=== PATIENT | female | born 1950 | race Caucasian/White ===

== ENCOUNTER → 2017-05-04 | Outpatient (CLI) | payer MEDICARE, BC ==
[2017-05-04 08:19] LABS: Basophils # (A) 0.1 k/uL (0-0.2); Basophils % (A) 1 %; CH 30.2; CHCM 34.8; Eosinophils # (A) 0.2 k/uL (0-0.7); Eosinophils % (A) 3 %; HCT 36.3 % (34.0-46.0); HGB 12.5 gm/dL (11.4-16.0); Luc # (Auto) 0.16; Luc % (Auto) 3; Lymphocytes % (A) 32 %; MCH 30.1 pg (25.0-35.0); MCHC 34.5 g/dL (31.0-37.0); MCV 87.2 fL (80.0-100.0); Mean Platelet Volume 8.2; Monocytes # (A) 0.4 k/uL (0-1.0); Monocytes % (A) 6 %; Neutrophils # (A) 3.6 k/uL (1.3-7.7); Neutrophils % (A) 56 %; RBC 4.16 m/uL (3.80-5.40); RDW 13.2 % (11.5-15.5); WBC 6.4 k/uL (3.8-10.6); WBC (Perox) 6.26
[2017-05-04 08:54] LABS: Hemoglobin A1C 7.1 % (4.2-6.1)
[2017-05-04 12:25] LABS: Calcium 9.9 mg/dL (8.4-10.2); Potassium 4.5 mmol/L (3.5-5.1); Total Bilirubin 0.3 mg/dL (0.2-1.3); Total Protein 7.3 g/dL (6.3-8.2)
== END | disposition home or self-care (01) ==
LOC: LABWHC1 07:22
PROVIDERS: ATTEND Internal Medicine Geriatric Medicine
DX: E78.00 Pure hypercholesterolemia, unspecified (principal); K21.9 Gastro-esophageal reflux disease without esophagitis; I10 Essential (primary) hypertension; E11.65 Type 2 diabetes mellitus with hyperglycemia; R74.8 Abnormal levels of other serum enzymes
CPT/HCPCS: 36415; 80053; 80061; 83036; 84439; 84443; 85025

== ENCOUNTER → 2017-08-24 | Outpatient (CLI) | payer MEDICARE, BC ==
[2017-08-24 07:59] LABS: Basophils # (A) 0.1 k/uL (0-0.2); Basophils % (A) 1 %; CH 30.3; CHCM 33.8; Eosinophils # (A) 0.3 k/uL (0-0.7); Eosinophils % (A) 4 %; HCT 34.5 % (34.0-46.0); HDW 2.64; HGB 11.5 gm/dL (11.4-16.0); Luc # (Auto) 0.07; Luc % (Auto) 1; Lymphocytes # (A) 2.2 k/uL (1.0-4.8); Lymphocytes % (A) 33 %; MCH 30.1 pg (25.0-35.0); MCHC 33.4 g/dL (31.0-37.0); MCV 90.1 fL (80.0-100.0); Mean Platelet Volume 8.8; Monocytes # (A) 0.4 k/uL (0-1.0); Monocytes % (A) 6 %; Neutrophils # (A) 3.7 k/uL (1.3-7.7); Neutrophils % (A) 55 %; RBC 3.83 m/uL (3.80-5.40); RDW 13.8 % (11.5-15.5); WBC 6.7 k/uL (3.8-10.6); WBC (Perox) 6.89
[2017-08-24 08:09] LABS: ALT 27 U/L (9-52); AST 16 U/L (14-36); Alkaline Phosphatase 73 U/L (38-126); Anion Gap 9 mmol/L; Blood Urea Nitrogen 21 mg/dL (7-17); Carbon Dioxide 28 mmol/L (22-30); Chloride 100 mmol/L (98-107); Cholesterol 225 mg/dL (<200); Glucose 147 mg/dL (74-99); HDL Cholesterol 46 mg/dL (40-60); Non-African American GFR(MDRD) 50 (>60 ml/min/1.73 sqM); Potassium 4.3 mmol/L (3.5-5.1); Sodium 137 mmol/L (137-145); Total Bilirubin 0.3 mg/dL (0.2-1.3); Total Protein 7.4 g/dL (6.3-8.2)
== END | disposition home or self-care (01) ==
LOC: LABWHC1 07:35
PROVIDERS: ATTEND Internal Medicine Geriatric Medicine
DX: K21.9 Gastro-esophageal reflux disease without esophagitis (principal); E11.65 Type 2 diabetes mellitus with hyperglycemia
CPT/HCPCS: 36415; 80053; 80061; 83036; 85025

== ENCOUNTER → 2017-10-02 | Outpatient (CLI) | payer MEDICARE, BC ==
--- NOTE | 2017-10-03 09:32 | MM ---
Reason for exam: screening (asymptomatic). Last mammogram was performed 1 year ago. History: Patient is postmenopausal. Family history of breast cancer in maternal cousin at age 60 and breast cancer in maternal aunt at age 60. Benign stereotactic core biopsy of the right breast, April 11, 2001. Took hormonal contraceptives for 4 years. Took estrogen for 4 months. Physical Findings: A clinical breast exam by your physician is recommended on an annual basis and results should be correlated with mammographic findings. MG 3D Screening Mammo W/Cad Bilateral CC and MLO view(s) were taken. Prior study comparison: September 27, 2016, bilateral MG 3d screening mammo w/cad. September 26, 2015, bilateral MG 3d screening mammo w/cad. The breast tissue is heterogeneously dense. This may lower the sensitivity of mammography. Right biopsy marker noted. No significant changes when compared with prior studies. ASSESSMENT: Negative, BI-RAD 1 RECOMMENDATION: Routine screening mammogram of both breasts in 1 year.
== END | disposition home or self-care (01) ==
LOC: RADMAMWWP 12:28
PROVIDERS: ATTEND Internal Medicine Geriatric Medicine
DX: Z12.31 Encounter for screening mammogram for malignant neoplasm of breast (principal)
CPT/HCPCS: 77063; 77067

== ENCOUNTER → 2018-04-01 | Outpatient (CLI) | payer MEDICARE, BC ==
[2018-04-01 08:46] LABS: Basophils # (A) 0.1 k/uL (0-0.2); Basophils % (A) 1 %; Eosinophils # (A) 0.1 k/uL (0-0.7); Eosinophils % (A) 2 %; HCT 34.5 % (34.0-46.0); Lymphocytes # (A) 1.4 k/uL (1.0-4.8); Lymphocytes % (A) 19 %; MCH 29.6 pg (25.0-35.0); MCHC 34.7 g/dL (31.0-37.0); MCV 85.4 fL (80.0-100.0); Mean Platelet Volume 7.1; Monocytes # (A) 0.4 k/uL (0-1.0); Monocytes % (A) 5 %; Neutrophils # (A) 5.3 k/uL (1.3-7.7); Neutrophils % (A) 73 %; Platelet Count 310 k/uL (150-450); RBC 4.04 m/uL (3.80-5.40); RDW 13.9 % (11.5-15.5); WBC 7.2 k/uL (3.8-10.6)
[2018-04-01 09:05] LABS: T4, Free (Free Thyroxine) 1.27 ng/dL (0.78-2.19)
[2018-04-01 09:19] LABS: Potassium 4.5 mmol/L (3.5-5.1)
[2018-04-01 09:20] LABS: Albumin 4.1 g/dL (3.5-5.0); Calcium 9.9 mg/dL (8.4-10.2); Total Bilirubin 0.3 mg/dL (0.2-1.3); Total Protein 6.6 g/dL (6.3-8.2)
[2018-04-01 18:29] LABS: Hemoglobin A1C 6.9 % (4.0-6.0)
== END | disposition home or self-care (01) ==
LOC: LABWHC1 07:07
PROVIDERS: ATTEND Internal Medicine Geriatric Medicine
DX: E78.00 Pure hypercholesterolemia, unspecified (principal); E11.65 Type 2 diabetes mellitus with hyperglycemia; K21.9 Gastro-esophageal reflux disease without esophagitis; I10 Essential (primary) hypertension; R74.8 Abnormal levels of other serum enzymes
CPT/HCPCS: 36415; 80053; 80061; 83036; 84439; 84443; 85025

== ENCOUNTER → 2018-07-10 | Outpatient (CLI) | payer MEDICARE, BC ==
[2018-07-10 08:39] LABS: Basophils % (A) 1 %; Eosinophils # (A) 0.1 k/uL (0-0.7); Eosinophils % (A) 2 %; HCT 33.5 % (34.0-46.0); HGB 11.5 gm/dL (11.4-16.0); Lymphocytes # (A) 1.4 k/uL (1.0-4.8); Lymphocytes % (A) 26 %; MCH 29.1 pg (25.0-35.0); MCHC 34.2 g/dL (31.0-37.0); MCV 85.2 fL (80.0-100.0); Mean Platelet Volume 8.4; Monocytes # (A) 0.3 k/uL (0-1.0); Monocytes % (A) 6 %; Neutrophils # (A) 3.4 k/uL (1.3-7.7); Neutrophils % (A) 65 %; Platelet Count 242 k/uL (150-450); RBC 3.94 m/uL (3.80-5.40); RDW 12.9 % (11.5-15.5); WBC 5.2 k/uL (3.8-10.6)
[2018-07-10 08:50] LABS: Albumin 4.1 g/dL (3.5-5.0); Calcium 9.8 mg/dL (8.4-10.2); Magnesium 1.7 mg/dL (1.6-2.3); Potassium 4.4 mmol/L (3.5-5.1); Total Bilirubin 0.3 mg/dL (0.2-1.3); Total Protein 6.8 g/dL (6.3-8.2)
[2018-07-10 09:07] LABS: T4, Free (Free Thyroxine) 1.2 ng/dL (0.78-2.19)
[2018-07-10 16:18] LABS: Vitamin D 25 Hydroxy 22.8 ng/mL (30.0-100.0)
[2018-07-10 19:06] LABS: Hemoglobin A1C 6.3 % (4.0-6.0)
== END | disposition home or self-care (01) ==
LOC: LABWHC1 07:49
PROVIDERS: ATTEND Internal Medicine Geriatric Medicine
DX: E11.65 Type 2 diabetes mellitus with hyperglycemia (principal); G58.9 Mononeuropathy, unspecified; E78.00 Pure hypercholesterolemia, unspecified; E55.9 Vitamin D deficiency, unspecified; G25.81 Restless legs syndrome
CPT/HCPCS: 36415; 80053; 80061; 82306; 82728; 83036; 83735; 84439; 84443; 85025

== ENCOUNTER → 2018-10-07 | Outpatient (CLI) | payer MEDICARE, BC ==
[2018-10-07 13:14] VITALS: BP 175/72; PULSE 76; RESP 18; TEMP 96.9; BMI 25.6
--- NOTE | 2018-10-07 13:46 | P.HPOB ---
History of Present Illness H&P Date: 10/07/18 Chief Complaint: The patient is here for her routine gynecologic exam and mammogram. This is a 68-year-old G to P2 with an LMP of 1975. She is status post TIAN and later BSO for benign reasons. She is here to establish with this office. She states it has been about 3 or 4 years since her last pelvic exam. She had a slightly abnormal Pap smear 3 or 4 years ago and had a colposcopy which was okay per the patient. She is sexually active and has had some vaginal dryness which is improved with an [id number] lubricant. Review of Systems Weight has been stable. She denies respiratory, cardiac and G.I. problems. She can get heartburn if she does not take her Prilosec. She denies maltreatment or problems with falling. : she denies any significant problems with urinary leakage. Past Medical History Past Medical History: Diabetes Mellitus (Type II diabetes), Hyperlipidemia, Hypertension Additional Past Medical History / Comment(s): Hiatal hernia. 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 She did have endometriosis. She says post TIAN and later BSO. History of Any Multi-Drug Resistant Organisms: None Reported Past Surgical History: Back Surgery, Cholecystectomy, Ear Surgery (Tubes and ear ), Hysterectomy (TIAN in 1975 and BSO in 1989.), Orthopedic Surgery (Shoulder and back surgeries.), Tonsillectomy Additional Past Surgical History / Comment(s): BSO. Colonoscopy 2017 and this was her 4th. Past Anesthesia/Blood Transfusion Reactions: No Reported Reaction Past Psychological History: No Psychological Hx Reported Smoking Status: Never smoker Past Alcohol Use History: None Reported Past Drug Use History: None Reported Additional History: She has been since 1969 and is retired. - Past Family History Father Family Medical History: Myocardial Infarction ([place]) Mother Family Medical History: Coronary Artery Disease (CAD), Hypertension Additional Family Medical History / Comment(s): Maternal aunt had breast cancer. Medications and Allergies Home Medications Medication Instructions Recorded Confirmed Type Aspirin [Adult Low Dose Aspirin EC] 81 mg PO DAILY 10/07/18 10/07/18 History Biotin 5,000 mcg PO DAILY 10/07/18 10/07/18 History Diltiazem Cd [Cardizem Cd] 240 mg PO DAILY 10/07/18 10/07/18 History Hydrochlorothiazide [Hydrodiuril] 25 mg PO DAILY 10/07/18 10/07/18 History Olmesartan [Benicar] 20 mg PO DAILY 10/07/18 10/07/18 History Omeprazole [PriLOSEC] 20 mg PO AC-BRKFST 10/07/18 10/07/18 History Allergies Allergy/AdvReac Type Severity Reaction Status Date / Time nystatin [From Bio-Statin] Allergy Unknown Verified 10/07/18 13:22 Sulfa (Sulfonamide Allergy Rash/Hives Verified 10/07/18 13:22 Antibiotics) Exam Vital Signs Temp Pulse Resp BP Pulse Ox 10/07/18 13:06 96.9 F L 76 18 175/72 98 Intake and Output 10/06/18 10/07/18 10/07/18 22:59 06:59 14:59 Other: Weight 63.503 kg Height 5'2", weight 140 pounds, BMI 25.6. This is a well-developed well-nourished white female who is alert and oriented times 3 in no acute distress. HEENT: Within normal limits. NECK: Supple without mass or thyromegaly. CHEST AND LUNGS: Clear to auscultation. HEART: Regular rate and rhythm. BREASTS: Are without mass or discharge. The left nipple is fairly flat to the surface compared to the right breast. The patient states it is been this way for many years. AXILLARY EXAM: Negative for adenopathy. BACK: Negative for CVA tenderness. ABDOMEN: Soft, nontender, without palpable masses. PELVIC EXAM: External genitalia appears normal with moderate atrophy. Vagina appears normal mild to moderate atrophy. There is no evidence of prolapse. Bimanual examination is negative for mass or tenderness. RECTAL EXAM: Rectovaginal exam is negative for mass or tenderness and is negative for occult blood. EXTREMITIES: Nontender. IMPRESSION: 1. 68-year-old menopausal female status post TIAN and later BSO for benign reasons with normal gynecologic exam. 2. Vaginal dryness with intercourse improved with [id number] lubricant. The patient is declining any vaginal estrogen. 3. History of osteopenia. The patient states she is declining any further testing since she would not take any medications regardless of what it shows. PLAN: 1. Pap smears have been discontinued. 2. Self breast awareness was discussed with the patient. 3. Screening mammogram will be done today. 4. Osteoporosis prevention was discussed. I have stressed the importance of adequate calcium, vitamin D and regular exercise. Recommended amounts of calcium and vitamin D were also discussed. She will let me know if she changes her mind about bone density testing which she is declining at this time. 5. She did receive a flu shot this past fall. 6. We have discussed her blood pressure elevation today. She will continue to take blood pressures at home and follow up with Dr. Thompson for blood pressure elevations. 7. She will return in one year.
--- NOTE | 2018-10-11 07:57 | MM ---
Reason for exam: screening (asymptomatic). Last mammogram was performed 1 year ago. History: Patient is postmenopausal. Family history of breast cancer in maternal cousin at age 60 and breast cancer in maternal aunt at age 60. Benign stereotactic core biopsy of the right breast, April 11, 2001. Took hormonal contraceptives for 4 years. Took estrogen for 4 months. MG 3D Screening Mammo W/Cad Bilateral CC and MLO view(s) were taken. Prior study comparison: October 02, 2017, bilateral MG 3d screening mammo w/cad. September 27, 2016, bilateral MG 3d screening mammo w/cad. The breast tissue is heterogeneously dense. This may lower the sensitivity of mammography. There are benign-appearing round vascular bilateral breast calcifications. No discrete abnormality. ASSESSMENT: Benign, BI-RAD 2 RECOMMENDATION: Routine screening mammogram of both breasts in 1 year.
== END | disposition home or self-care (01) ==
LOC: WWCWWP 12:27
PROVIDERS: ATTEND Obstetrics & Gynecology
DX: Z12.31 Encounter for screening mammogram for malignant neoplasm of breast (principal)
CPT/HCPCS: 77063; 77067

== ENCOUNTER → 2018-11-07 | Outpatient (CLI) | payer MEDICARE, BC ==
[2018-11-07 07:29] LABS: Basophils # (A) 0.1 k/uL (0-0.2); Basophils % (A) 1 %; Eosinophils # (A) 0.3 k/uL (0-0.7); Eosinophils % (A) 5 %; HCT 34.7 % (34.0-46.0); HGB 11.8 gm/dL (11.4-16.0); Lymphocytes # (A) 1.8 k/uL (1.0-4.8); Lymphocytes % (A) 28 %; MCH 28.6 pg (25.0-35.0); MCHC 33.9 g/dL (31.0-37.0); MCV 84.4 fL (80.0-100.0); Mean Platelet Volume 7.4; Monocytes # (A) 0.4 k/uL (0-1.0); Monocytes % (A) 6 %; Neutrophils # (A) 3.9 k/uL (1.3-7.7); Neutrophils % (A) 59 %; Platelet Count 264 k/uL (150-450); RBC 4.11 m/uL (3.80-5.40); RDW 13.8 % (11.5-15.5); WBC 6.5 k/uL (3.8-10.6)
[2018-11-07 16:54] LABS: Albumin 4.5 g/dL (3.80-4.90); Albumin/Globulin Ratio 2.25 (1.60-3.17); Anion Gap 10.5 mmol/L (4.00-12.00); Calcium 9.8 mg/dL (8.7-10.3); Carbon Dioxide 27.5 mmol/L (21.6-31.8); LDL Cholesterol,Calculated 147.8 mg/dL (0.0-131.0); Potassium 4.5 mmol/L (3.5-5.5); Total Bilirubin 0.3 mg/dL (0.2-1.2); Total Protein 6.5 g/dL (6.2-8.2); VLDL Calculation 41.2 mg/dL (5.00-40.00)
[2018-11-07 17:03] LABS: T4, Free (Free Thyroxine) 1.3 ng/dL (0.80-1.80)
[2018-11-07 17:32] LABS: Hemoglobin A1C 6.4 % (4.0-6.0)
== END ==
LOC: LABWHC1 06:59
PROVIDERS: ATTEND Nurse Practitioner Family
DX: I10 Essential (primary) hypertension (principal); E78.00 Pure hypercholesterolemia, unspecified; E11.65 Type 2 diabetes mellitus with hyperglycemia
CPT/HCPCS: 36415; 80053; 80061; 83036; 84439; 84443; 85025

== ENCOUNTER → 2019-03-24 | Outpatient (CLI) | payer MEDICARE, BC ==
[2019-03-24 07:15] LABS: Basophils # (A) 0.1 k/uL (0-0.2); Basophils % (A) 1 %; Eosinophils # (A) 0.2 k/uL (0-0.7); Eosinophils % (A) 4 %; HCT 33.1 % (34.0-46.0); HGB 11.2 gm/dL (11.4-16.0); Lymphocytes # (A) 1.8 k/uL (1.0-4.8); Lymphocytes % (A) 31 %; MCH 29.1 pg (25.0-35.0); MCHC 33.8 g/dL (31.0-37.0); MCV 85.9 fL (80.0-100.0); Mean Platelet Volume 8.1; Monocytes # (A) 0.3 k/uL (0-1.0); Monocytes % (A) 6 %; Neutrophils # (A) 3.2 k/uL (1.3-7.7); Neutrophils % (A) 55 %; Platelet Count 253 k/uL (150-450); RBC 3.86 m/uL (3.80-5.40); WBC 5.7 k/uL (3.8-10.6)
[2019-03-24 11:27] LABS: African American GFR (CKD) 52.7 (60.0-200.0); Albumin 4.5 g/dL (3.80-4.90); Albumin/Globulin Ratio 2.5 (1.60-3.17); Anion Gap 9.6 mmol/L (4.00-12.00); BUN/Creat Ratio 23.33 Ratio (12.00-20.00); Calcium 9.8 mg/dL (8.7-10.3); Carbon Dioxide 26.4 mmol/L (21.6-31.8); Globulin 1.8 g/dL (1.6-3.3); LDL Cholesterol,Calculated 131.8 mg/dL (0.0-131.0); Potassium 4.2 mmol/L (3.5-5.5); Total Bilirubin 0.3 mg/dL (0.2-1.2); Total Protein 6.3 g/dL (6.2-8.2); VLDL Calculation 39.2 mg/dL (5.00-40.00)
[2019-03-24 12:58] LABS: Hemoglobin A1C 6.5 % (4.0-6.0)
== END | disposition home or self-care (01) ==
LOC: LABWHC1 06:40
PROVIDERS: ATTEND Internal Medicine Geriatric Medicine
DX: Z00.00 Encounter for general adult medical examination without abnormal findings (principal); E11.65 Type 2 diabetes mellitus with hyperglycemia
CPT/HCPCS: 36415; 80053; 80061; 82043; 82570; 83036; 84443; 85025

== ENCOUNTER → 2019-07-28 | Outpatient (CLI) | payer MEDICARE, BC ==
[2019-07-28 07:47] LABS: Basophils % (A) 1 %; Eosinophils # (A) 0.2 k/uL (0-0.7); Eosinophils % (A) 3 %; HGB 11.3 gm/dL (11.4-16.0); Lymphocytes # (A) 1.7 k/uL (1.0-4.8); Lymphocytes % (A) 27 %; MCH 29.9 pg (25.0-35.0); MCHC 35.2 g/dL (31.0-37.0); Mean Platelet Volume 7.4; Monocytes # (A) 0.4 k/uL (0-1.0); Monocytes % (A) 6 %; Neutrophils # (A) 3.7 k/uL (1.3-7.7); Neutrophils % (A) 60 %; Platelet Count 240 k/uL (150-450); RBC 3.77 m/uL (3.80-5.40); WBC 6.1 k/uL (3.8-10.6)
[2019-07-28 12:05] LABS: African American GFR (CKD) 52.7 (60.0-200.0); Albumin 4.5 g/dL (3.80-4.90); Albumin/Globulin Ratio 2.37 (1.60-3.17); Anion Gap 15.7 mmol/L (4.00-12.00); BUN/Creat Ratio 18.33 Ratio (12.00-20.00); Calcium 9.3 mg/dL (8.7-10.3); Carbon Dioxide 28.3 mmol/L (21.6-31.8); Chol/HDL Ratio 4.54; Globulin 1.9 g/dL (1.6-3.3); LDL Cholesterol,Calculated 130.6 mg/dL (0.0-131.0); Potassium 4.3 mmol/L (3.5-5.5); Total Bilirubin 0.3 mg/dL (0.2-1.2); Total Protein 6.4 g/dL (6.2-8.2); VLDL Calculation 39.4 mg/dL (5.00-40.00)
[2019-07-28 14:32] LABS: Hemoglobin A1C 6.4 % (4.0-6.0)
== END | disposition home or self-care (01) ==
LOC: LABWHC1 06:49
PROVIDERS: ATTEND Internal Medicine Geriatric Medicine
DX: E11.22 Type 2 diabetes mellitus with diabetic chronic kidney disease (principal); N18.9 Chronic kidney disease, unspecified; E78.2 Mixed hyperlipidemia; E11.65 Type 2 diabetes mellitus with hyperglycemia
CPT/HCPCS: 36415; 80053; 80061; 83036; 84550; 85025

== ENCOUNTER → 2020-04-18 | Outpatient (CLI) | payer MEDICARE, BC ==
--- NOTE | 2020-04-19 10:32 | MM ---
Reason for exam: screening (asymptomatic). Last mammogram was performed 1 year and 6 months ago. History: Patient is postmenopausal. Family history of breast cancer in maternal cousin at age 60 and breast cancer in maternal aunt at age 60. Benign stereotactic core biopsy of the right breast, April 11, 2001. Took hormonal contraceptives for 4 years. Took estrogen for 4 months. Physical Findings: A clinical breast exam by your physician is recommended on an annual basis and results should be correlated with mammographic findings. MG 3D Screening Mammo W/Cad Bilateral CC and MLO view(s) were taken. Prior study comparison: October 07, 2018, bilateral MG 3d screening mammo w/cad. October 02, 2017, bilateral MG 3d screening mammo w/cad. There are scattered fibroglandular densities. Previous mammotome biopsy in the right breast. There is chronic nodularity in the right breast medially. No significant changes when compared with prior studies. ASSESSMENT: Negative, BI-RAD 1 RECOMMENDATION: Routine screening mammogram of both breasts in 1 year.
== END | disposition home or self-care (01) ==
LOC: RADMAMWWP 13:11
PROVIDERS: ATTEND Internal Medicine Geriatric Medicine
DX: Z12.31 Encounter for screening mammogram for malignant neoplasm of breast (principal)
CPT/HCPCS: 77063; 77067

== ENCOUNTER → 2020-05-19 | Outpatient (CLI) | payer MEDICARE, BC ==
--- NOTE | 2020-05-19 13:52 | MR ---
EXAMINATION TYPE: MR iac wo/w con DATE OF EXAM: 05/19/2020 COMPARISON: None HISTORY: Rt sided hearing loss, acoustic nerve disorder TECHNIQUE: Multiplanar, multisequence images of the brain and brainstem is performed without and with IV contras t, utilizing 6 mL intravenous Gadavist . FINDINGS: Diffusion weighted images demonstrate no evidence of a recent infarct or other diffusion ab normality. There is no extra-axial fluid collection or significant white matter signal abnormality. The ventricular system and cisternal spaces are normal in size and appearance. The brain volume is age appropriate. Midline structures demonstrate normal morphology. Cerebellar tonsils are low-lying in position at the level the foramen magnum. Post contrast images demonstrate no abnormal enhancement. The dural venou s sinuses appear patent. Changes of chronic sinusitis are noted. There are scattered focal areas of abnormal signal in the white matter which are not of remote microv ascular ischemia. Mastoid air cells are clear. IMPRESSION: 1. No evidence of cerebellopontine angle mass or acoustic schwannoma 2. Mild chronic sinusitis 3. Minimal nonspecific white matter changes can be associated with hypertension, migraine headaches o r remote microvascular ischemia.
== END | disposition home or self-care (01) ==
LOC: RADMRIMAIN 12:29
PROVIDERS: ATTEND Otolaryngology
DX: R90.82 White matter disease, unspecified (principal); Z88.2 Allergy status to sulfonamides; Z88.8 Allergy status to other drugs, medicaments and biological substances
CPT/HCPCS: 70553; A9585

== ENCOUNTER → 2021-05-02 | Outpatient (CLI) | payer MEDICARE, BC ==
[2021-05-02 12:42] VITALS: BP 177/68; PULSE 70; RESP 18; TEMP 98.5
--- NOTE | 2021-05-02 13:38 | P.HPOB ---
History of Present Illness H&P Date: 05/02/21 Chief Complaint: The patient is here for her routine gynecologic exam and ma mmogram. This is a 71-year-old with an LMP of 1975. The patient is status post TIAN and later BSO for benign reasons. The patient states she had 3 urinary tract infections relatively close to each other earlier this year. She is infrequently sexually active. She has also noticed slight urinary leakage with sneezing and coughing. She also tends to have to urinate about 3 times per night. She states she does drink lots of water and was told to do that. She is otherwise without gynecologic complaints. Review of Systems She has lost about 5 pounds over the past 2 years. She denies respiratory, cardiac and G.I. problems. She denies maltreatment or problems with falling. : She has been having some leakage with coughing and sneezing and urinates about 3 times each night. Please see the HPI. Past Medical History Past Medical History: Diabetes Mellitus, Hyperlipidemia, Hypertension Additional Past Medical History / Comment(s): Type 2 diabetes. Hiatal hernia. 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 She did have endometriosis. She says post TIAN and later BSO. History of Any Multi-Drug Resistant Organisms: None Reported Past Surgical History: Back Surgery, Cholecystectomy, Ear Surgery, Hysterectomy, Orthopedic Surgery, Tonsillectomy Additional Past Surgical History / Comment(s): BSO. Colonoscopy 2018(next after 10yr). Past Anesthesia/Blood Transfusion Reactions: No Reported Reaction Past Psychological History: No Psychological Hx Reported Smoking Status: Never smoker Past Alcohol Use History: None Reported Past Drug Use History: None Reported Additional History: She has been since 1969 and is infrequently sexually active. Her has health issues. She is retired. - Past Family History Father Family Medical History: Myocardial Infarction ([place]) Mother Family Medical History: Coronary Artery Disease (CAD), Hypertension Additional Family Medical History / Comment(s): Maternal aunt had breast cancer. Medications and Allergies Home Medications Medication Instructions Recorded Confirmed Type Aspirin [Adult Low Dose Aspirin EC] 81 mg PO DAILY 10/07/18 05/02/21 History Biotin 5,000 mcg PO DAILY 10/07/18 05/02/21 History Diltiazem Cd [Cardizem Cd] 240 mg PO DAILY 10/07/18 05/02/21 History Olmesartan [Benicar] 20 mg PO DAILY 10/07/18 05/02/21 History Omeprazole [PriLOSEC] 20 mg PO AC-BRKFST 10/07/18 05/02/21 History Diltiazem HCl [Cardizem] 120 mg PO DAILY 05/02/21 05/02/21 History Rosuvastatin Calcium [Crestor] 5 mg PO DAILY 05/02/21 05/02/21 History metFORMIN HCL [Glucophage] 250 mg PO BID 05/02/21 05/02/21 History Allergies Allergy/AdvReac Type Severity Reaction Status Date / Time nystatin [From Bio-Statin] Allergy Unknown Verified 05/02/21 12:36 Sulfa (Sulfonamide Allergy Rash/Hives Verified 05/02/21 12:36 Antibiotics) enalaprilat [From Vasotec] AdvReac Cough Unverified 05/02/21 12:36 Exam Vital Signs Temp Pulse Resp BP Pulse Ox 05/02/21 12:36 98.5 F 70 18 177/68 98 Intake and Output 05/01/21 05/02/21 05/02/21 22:59 06:59 14:59 Other: Weight 61.235 kg Height 5 feet. Weight 135 pounds, BMI 26.4. This is a well-developed well-nourished white female who is alert and oriented times 3 in no acute distress. HEENT: Within normal limits. NECK: Supple without mass or thyromegaly. CHEST AND LUNGS: Clear to auscultation. HEART: Regular rate and rhythm. BREASTS: Are without mass or discharge. AXILLARY EXAM: Negative for adenopathy. BACK: Negative for CVA tenderness. ABDOMEN: Soft, nontender, without palpable masses. PELVIC EXAM: External genitalia appears normal with moderate atrophy. Vagina appears normal with moderate atrophy. There is no evidence of prolapse at rest. With cough and Valsalva there is a grade 1 cystocele. No urinary leakage is demonstrated. Bimanual examination is negative for mass or tenderness. RECTAL EXAM: Rectovaginal exam is negative for mass or tenderness and is negative for occult blood. EXTREMITIES: Nontender. IMPRESSION: 1. 71-year-old menopausal female status post TIAN and BSO for benign reasons, with normal gynecologic exam. 2. Mild stress urinary incontinence with no significant physical findings at this time. 3. Frequent UTIs this year. 4. Elevated blood pressure with history of chronic hypertension. PLAN: 1. Pap smears have been discontinued. 2. Self breast awareness was discussed with the patient. 3. Screening mammogram will be done today. 4. We have had a long discussion regarding her urinary leakage and symptoms. I have recommended that she try to empty her bladder as completely as possible when she does urinate. She is to do this by relaxing and giving herself more time. Trial of estradiol vaginal cream, 1 g into the vagina twice weekly. The electronic prescription will be sent to [facility] pharmacy on . 5. Osteoporosis prevention was discussed. I have stressed the importance of adequate calcium, vitamin D and regular exercise. Recommended amounts of calcium and vitamin D were also discussed. She is declining bone density testing oriented type of prescription treatment for the bones at this time. She states she will let me know if she changes her mind about bone density testing. 6. She did complete her Covid vaccination series and due to get a flu shot last fall. 7. If her urinary incontinence is worsening we will consider referral to a gynecologic urologist. 8. I have recommended that she check her own blood pressures at home since she does have a blood pressure cuff. She'll do this on a regular basis and follow- up with Dr. Cordova for blood pressure elevations. 9. She was advised to return in one year for her annual well woman exam.
== END | disposition home or self-care (01) ==
LOC: WWCWWP 12:18
PROVIDERS: ATTEND Obstetrics & Gynecology
DX: Z12.31 Encounter for screening mammogram for malignant neoplasm of breast (principal)
CPT/HCPCS: 77063; 77067

== ENCOUNTER → 2021-05-16 | Outpatient (CLI) | payer MEDICARE, BC ==
--- NOTE | 2021-05-17 09:46 | MM ---
Reason for exam: additional evaluation requested from abnormal screening. Last mammogram was performed less than 1 month ago. History: Patient is postmenopausal and history of other cancer. Family history of breast cancer in maternal cousin at age 60 and breast cancer in maternal aunt at age 60. Benign stereotactic core biopsy of the right breast, April 11, 2001. Took hormonal contraceptives for 4 years. Took estrogen for 4 months. Physical Findings: Nurse did not find any significant physical abnormalities on exam. MG 3D Work Up W/Cad LT CC with magnification and LM view(s) were taken of the left breast. Prior study comparison: May 02, 2021, bilateral MG 3d screening mammo w/cad. April 18, 2020, bilateral MG 3d screening mammo w/cad. October 07, 2018, bilateral MG 3d screening mammo w/cad. There are scattered fibroglandular densities. Finding: There is new or more prominent 3mm heterogeneous, grouped/clustered calcifications in the anterior, central position of the left breast. These results were verbally communicated with the patient and result sheet given to the patient on 05/16/21. ASSESSMENT: Suspicious, BI-RAD 4 RECOMMENDATION: Stereotactic core biopsy of the left breast. Called Dr. Robles's office with mammographic findings and has scheduled an appointment for the patient for 05/29/21 at 10:[address] Goins. Biopsy scheduled for 05/22/21 at 10:30. PRELIMINARY REPORT CALLED AND FAXED TO DR. GOINS ON 05/17/21.
== END | disposition home or self-care (01) ==
LOC: RADMAMWWP 14:49
PROVIDERS: ATTEND Obstetrics & Gynecology
DX: R92.8 Other abnormal and inconclusive findings on diagnostic imaging of breast (principal)
CPT/HCPCS: 77065; G0279; 77061

== ENCOUNTER → 2021-05-22 | Day surgery (SDC) | payer MEDICARE, BC ==
[2021-05-22 11:26] VITALS: BP 158/70; PULSE 76; RESP 14; TEMP 98.1
--- NOTE | 2021-05-22 12:30 | MM ---
Stereotactic Mammotome core biopsy left breast. HISTORY: Microcalcifications The Microcalcifications in question within the left breast were targeted by the undersigned. Procedure was performed by the undersigned. Informed consent was obtained and all of the patients questions were answered. The standard sterile technique was utilized and appropriate local anesthesia was obtained with 1% licocaine. Mammotome probe was advanced and multiple core samples were obtained and sent to pathology for interpretation. Microclip marker was deployed at the site of biopsy. Post procedural mammogram demonstrates appropriate deployment of radiopaque clip marker. The patient tolerated the procedure well and left the department in stable condition. Pathology results are pending. IMPRESSION: Successful stereotactic core biopsy left breast with pathology results pending. Pathology Results: Benign LEFT BREAST, CORE BIOPSY: Fibrocystic change with columnar cell change, microcalcification and sclerosing adenosis with focal usual ductal hyperplasia. Focal fibroadenomatoid stromal fibrosis. Recommendation Followup mammogram of the left breast in 6 months. JOSE GUADALUPE
== END ==
LOC: RADMAMWWP 09:32
PROVIDERS: ATTEND Student in an Organized Health Care Education/Training Program
DX: R92.8 Other abnormal and inconclusive findings on diagnostic imaging of breast (principal)
CPT/HCPCS: 19081; 88305; A4648; J2001

== ENCOUNTER 2021-08-13 04:35 | Emergency (ER) | payer MEDICARE, BC ==
[2021-08-13 04:49] VITALS: PULSE 88
[2021-08-13] MEDS ORDERED: SODIUM CHLORIDE 0.9% 1,000 ML IV STA (04:51)
--- NOTE | 2021-08-13 04:52 | ED ---
Abdominal Pain HPI - General Chief Complaint: Urogenital Stated Complaint: Poss Kidney Stone Time Seen by Provider: 08/13/21 04:42 Source: patient, RN notes reviewed, old records reviewed Mode of arrival: ambulatory Limitations: no limitations - History of Present Illness Initial Comments: This is a 71-year-old female to the ER for evaluation of severe right-sided flank pain right-sided groin pain and pain to the back. Positive nausea no vomiting patient is no travel history no sick contacts no fevers no other complaints. This is pain radiating to her groin with sudden onset. MD Complaint: abdominal pain, flank pain -: hour(s) Location: RLQ, suprapubic Radiation: R flank Migration to: R flank Severity: severe Severity scale (1-10): 9 Quality: sharp Consistency: constant Improves With: nothing Worsens With: nothing Associated Symptoms: nausea Treatments Prior to Arrival: other (none) - Related Data Home Medications Medication Instructions Recorded Confirmed Aspirin [Adult Low Dose Aspirin EC] 81 mg PO DAILY 10/07/18 05/22/21 Diltiazem Cd [Cardizem Cd] 240 mg PO DAILY 10/07/18 05/22/21 Olmesartan [Benicar] 10 mg PO DAILY 10/07/18 05/22/21 Omeprazole [PriLOSEC] 20 mg PO AC-BRKFST 10/07/18 05/22/21 Diltiazem HCl [Cardizem] 120 mg PO HS 05/02/21 05/22/21 Rosuvastatin Calcium [Crestor] 2.5 mg PO WEEKLY 05/02/21 05/22/21 metFORMIN HCL [Glucophage] 250 mg PO BID 05/02/21 05/22/21 Olmesartan [Benicar] 20 mg PO HS 05/19/21 05/22/21 Previous Rx's Medication Instructions Recorded Estradiol Cream [Estrace Cream 1 gm VAGINAL DIRECTED #1 tube 05/02/21 0.01%] Allergies Allergy/AdvReac Type Severity Reaction Status Date / Time Sulfa (Sulfonamide Allergy Rash/Hives Verified 08/13/21 04:49 Antibiotics) clonidine [From Catapres] AdvReac Unknown Verified 08/13/21 04:49 enalaprilat [From Vasotec] AdvReac Cough Verified 08/13/21 04:49 tetanus toxoid, adsorbed AdvReac Rash/Hives Verified 08/13/21 04:49 Review of Systems ROS Statement: Those systems with pertinent positive or pertinent negative responses have been documented in the HPI. ROS Other: All systems not noted in ROS Statement are negative. Past Medical History Past Medical History: Diabetes Mellitus, Hyperlipidemia, Hypertension Additional Past Medical History / Comment(s): Type 2 diabetes. Hiatal hernia. 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 She did have endometriosis. She says post TIAN and later BSO. History of Any Multi-Drug Resistant Organisms: None Reported Past Surgical History: Back Surgery, Cholecystectomy, Ear Surgery, Hysterectomy, Orthopedic Surgery, Tonsillectomy Additional Past Surgical History / Comment(s): BSO. Colonoscopy 2018(next after 10yr). cataract surgery bilat eyes. Macular eye surgery bilat, Squamous cell removal Past Anesthesia/Blood Transfusion Reactions: Postoperative Nausea & Vomiting (PONV) Past Psychological History: No Psychological Hx Reported Smoking Status: Never smoker Past Alcohol Use History: None Reported Past Drug Use History: None Reported - Past Family History Father Family Medical History: Myocardial Infarction ([place]) Mother Family Medical History: Coronary Artery Disease (CAD), Hypertension Additional Family Medical History / Comment(s): Maternal aunt had breast cancer. General Exam Limitations: no limitations General appearance: alert, in no apparent distress, anxious Head exam: Present: atraumatic, normocephalic, normal inspection Eye exam: Present: normal appearance, PERRL, EOMI. Absent: scleral icterus, conjunctival injection, periorbital swelling ENT exam: Present: normal exam, mucous membranes moist Neck exam: Present: normal inspection. Absent: tenderness, meningismus, lymphadenopathy Respiratory exam: Present: normal lung sounds bilaterally. Absent: respiratory distress, wheezes, rales, rhonchi, stridor Cardiovascular Exam: Present: regular rate, normal rhythm, normal heart sounds. Absent: systolic murmur, diastolic murmur, rubs, gallop, clicks GI/Abdominal exam: Present: soft, normal bowel sounds. Absent: distended, tend erness, guarding, rebound, rigid Extremities exam: Present: normal inspection, full ROM, normal capillary refill. Absent: tenderness, pedal edema, joint swelling, calf tenderness Back exam: Present: normal inspection Neurological exam: Present: alert, oriented X3, CN II-XII intact Psychiatric exam: Present: normal affect, normal mood Skin exam: Present: warm, dry, intact, normal color. Absent: rash Course Vital Signs 08/13/21 08/13/21 04:44 07:05 Temperature 98.3 F 98.4 F Pulse Rate 88 88 Respiratory 18 22 Rate Blood Pressure 157/62 146/84 O2 Sat by Pulse 99 96 Oximetry - Reevaluation(s) Reevaluation #1: Medical records reviewed Patient has significant improvement here in the emergency department Patient informed results and questions answered Medical Decision Making - Medical Decision Making 70 female with right ureteral stone, pain is well-controlled and patient can be discharged home - Lab Data Result diagrams: 08/13/21 05:11 08/13/21 05:11 Lab Results 08/13/21 08/13/21 08/13/21 Range/Units 05:11 05:11 05:11 WBC 12.2 H (3.8-10.6) k/uL RBC 3.95 (3.80-5.40) m/uL Hgb 11.4 (11.4-16.0) gm/dL Hct 34.1 (34.0-46.0) % MCV 86.2 (80.0-100.0) fL MCH 28.8 (25.0-35.0) pg MCHC 33.4 (31.0-37.0) g/dL RDW 12.7 (11.5-15.5) % Plt Count 233 (150-450) k/uL MPV 8.9 Neutrophils % 89 % Lymphocytes % 7 % Monocytes % 2 % Eosinophils % 0 % Basophils % 0 % Neutrophils # 10.9 H (1.3-7.7) k/uL Lymphocytes # 0.9 L (1.0-4.8) k/uL Monocytes # 0.3 (0-1.0) k/uL Eosinophils # 0.0 (0-0.7) k/uL Basophils # 0.0 (0-0.2) k/uL Sodium 138 (137-145) mmol/L Potassium 4.3 (3.5-5.1) mmol/L Chloride 104 (98-107) mmol/L Carbon Dioxide 23 (22-30) mmol/L Anion Gap 11 mmol/L BUN 26 H (7-17) mg/dL Creatinine 1.22 H (0.52-1.04) mg/dL Est GFR (CKD-EPI)AfAm 51 (>60 ml/min/1.73 sqM) Est GFR (CKD-EPI)NonAf 44 (>60 ml/min/1.73 sqM) Glucose 245 H (74-99) mg/dL Plasma Lactic Acid Ronnie (0.7-2.0) mmol/L Calcium 9.5 (8.4-10.2) mg/dL Total Bilirubin 0.3 (0.2-1.3) mg/dL AST 22 (14-36) U/L ALT 19 (4-34) U/L Alkaline Phosphatase 89 (38-126) U/L Troponin I (0.000-0.034) ng/mL Total Protein 7.3 (6.3-8.2) g/dL Albumin 4.5 (3.5-5.0) g/dL Amylase 57 (30-110) U/L Lipase 45 (23-300) U/L Urine Color Yellow Urine Appearance Cloudy H (Clear) Urine pH 5.0 (5.0-8.0) Ur Specific [place] 1.031 (1.001-1.035) Urine Protein 1+ H (Negative) Urine Glucose (UA) 2+ H (Negative) Urine Ketones 1+ H (Negative) Urine Blood Moderate H (Negative) Urine Nitrite Negative (Negative) Urine Bilirubin Negative (Negative) Urine Urobilinogen <2.0 (<2.0) mg/dL Ur Leukocyte Esterase Negative (Negative) Urine RBC 55 H (0-5) /hpf Urine WBC 2 (0-5) /hpf Ur Squamous Epith Cells 3 (0-4) /hpf Urine Bacteria Rare H (None) /hpf Hyaline Casts 11 H (0-2) /lpf Urine Mucus Few H (None) /hpf Urine Yeast (Budding) Occasional H (None) /hpf 08/13/21 08/13/21 Range/Units 05:11 05:11 WBC (3.8-10.6) k/uL RBC (3.80-5.40) m/uL Hgb (11.4-16.0) gm/dL Hct (34.0-46.0) % MCV (80.0-100.0) fL MCH (25.0-35.0) pg MCHC (31.0-37.0) g/dL RDW (11.5-15.5) % Plt Count (150-450) k/uL MPV Neutrophils % % Lymphocytes % % Monocytes % % Eosinophils % % Basophils % % Neutrophils # (1.3-7.7) k/uL Lymphocytes # (1.0-4.8) k/uL Monocytes # (0-1.0) k/uL Eosinophils # (0-0.7) k/uL Basophils # (0-0.2) k/uL Sodium (137-145) mmol/L Potassium (3.5-5.1) mmol/L Chloride (98-107) mmol/L Carbon Dioxide (22-30) mmol/L Anion Gap mmol/L BUN (7-17) mg/dL Creatinine (0.52-1.04) mg/dL Est GFR (CKD-EPI)AfAm (>60 ml/min/1.73 sqM) Est GFR (CKD-EPI)NonAf (>60 ml/min/1.73 sqM) Glucose (74-99) mg/dL Plasma Lactic Acid Ronnie 1.1 (0.7-2.0) mmol/L Calcium (8.4-10.2) mg/dL Total Bilirubin (0.2-1.3) mg/dL AST (14-36) U/L ALT (4-34) U/L Alkaline Phosphatase (38-126) U/L Troponin I <0.012 (0.000-0.034) ng/mL Total Protein (6.3-8.2) g/dL Albumin (3.5-5.0) g/dL Amylase (30-110) U/L Lipase (23-300) U/L Urine Color Urine Appearance (Clear) Urine pH (5.0-8.0) Ur Specific [place] (1.001-1.035) Urine Protein (Negative) Urine Glucose (UA) (Negative) Urine Ketones (Negative) Urine Blood (Negative) Urine Nitrite (Negative) Urine Bilirubin (Negative) Urine Urobilinogen (<2.0) mg/dL Ur Leukocyte Esterase (Negative) Urine RBC (0-5) /hpf Urine WBC (0-5) /hpf Ur Squamous Epith Cells (0-4) /hpf Urine Bacteria (None) /hpf Hyaline Casts (0-2) /lpf Urine Mucus (None) /hpf Urine Yeast (Budding) (None) /hpf - Radiology Data Radiology results: report reviewed (CT abdomen and pelvis positive for right-rona ed kidney stone), image reviewed Disposition Clinical Impression: Right ureteral stone Disposition: HOME SELF-CARE Condition: Good Instructions (If sedation given, give patient instructions): Kidney Stones (ED) Is patient prescribed a controlled substance at d/c from ED?: No Referrals: George Cordova MD [Primary Care Provider] - 1-2 days
--- NOTE | 2021-08-13 06:07 | CT ---
EXAMINATION TYPE: CT abdomen pelvis wo con DATE OF EXAM: 08/13/2021 COMPARISON: None HISTORY: right side flank pain CT DLP: 435.7 mGycm Automated exposure control for dose reduction was used. Images obtained from the diaphragm to the floor the pelvis with no contrast. There is no pleural effusion. There is small hiatal hernia. Heart size is normal. There is no pericar dial effusion. There is no adrenal mass. Kidneys have normal size. There is mild right-sided hydronephrosis and hydr oureter. There is probably a 4 mm obstructing calculus at the right ureterovesical junction. There is no retroperitoneal adenopathy. There are sigmoid diverticula. There is no diverticulitis. There is hysterectomy. There is no evidenc e of a pelvic mass. There is no free fluid in the pelvis. Bony structures are intact. Lumbar vertebra show normal alignment. Bony pelvis appears intact. IMPRESSION: Small obstructing calculus at the right ureterovesical junction. Mild right-sided hydronephrosis and hydroureter. Mild sigmoid diverticulosis. No diverticulitis.
[2021-08-13 06:21] LABS: Basophils % (A) 0 %; Eosinophils % (A) 0 %; HCT 34.1 % (34.0-46.0); HGB 11.4 gm/dL (11.4-16.0); Lymphocytes # (A) 0.9 k/uL (1.0-4.8); Lymphocytes % (A) 7 %; MCH 28.8 pg (25.0-35.0); MCHC 33.4 g/dL (31.0-37.0); MCV 86.2 fL (80.0-100.0); Mean Platelet Volume 8.9; Monocytes # (A) 0.3 k/uL (0-1.0); Monocytes % (A) 2 %; Neutrophils # (A) 10.9 k/uL (1.3-7.7); Neutrophils % (A) 89 %; Platelet Count 233 k/uL (150-450); RBC 3.95 m/uL (3.80-5.40); RDW 12.7 % (11.5-15.5); WBC 12.2 k/uL (3.8-10.6)
[2021-08-13 06:27] LABS: Albumin 4.5 g/dL (3.5-5.0); Calcium 9.5 mg/dL (8.4-10.2); Potassium 4.3 mmol/L (3.5-5.1); Total Bilirubin 0.3 mg/dL (0.2-1.3); Total Protein 7.3 g/dL (6.3-8.2)
[2021-08-13] MEDS ORDERED: TAMSULOSIN 0.4 MG CAP.ER.24H PO STA (06:33)
[2021-08-13] MEDS ORDERED: ACETAMINOPHEN TAB 500 MG TAB PO STA (06:33)
[2021-08-13] MEDS ORDERED: ONDANSETRON 4 MG/2 ML VIAL IVP STA (06:33)
[2021-08-13] MEDS ORDERED: KETOROLAC 15 MG/ML 1 ML VIAL IVP STA (06:33)
[2021-08-13] MEDS ORDERED: ONDANSETRON 4 MG ODT STARTER PACK 2 TAB BTL PO STA (06:33)
[2021-08-13 06:35] LABS: Appearance,Urine Cloudy (Clear); Bacteria,Urine Rare /hpf; Bilirubin,Urine Negative (Negative); Blood,Urine Moderate (Negative); Budding Yeast,Urine Occasional /hpf; Color,Urine Yellow; Glucose,Urine (UA) 2+ (Negative); Hyaline Casts,Urine 11 /lpf (0-2); Ketones,Urine 1+ (Negative); Leukocyte Esterase,Urine Negative (Negative); Mucus,Urine Few /hpf; Nitrite,Urine Negative (Negative); Protein,Urine 1+ (Negative); RBC,Urine 55 /hpf (0-5); Specific Gravity,Urine 1.031 (1.001-1.035); Squamous Epithelial Cell,Urine 3 /hpf (0-4); Urobilinogen,Urine <2.0 mg/dL (<2.0); WBC,Urine 2 /hpf (0-5)
[2021-08-13 07:07] VITALS: BP 146/84; RESP 22; TEMP 98.4
== END 2021-08-13 07:21 | disposition home or self-care (01) ==
LOC: EC 04:35
DX: N13.2 Hydronephrosis with renal and ureteral calculous obstruction (principal); E11.9 Type 2 diabetes mellitus without complications; I10 Essential (primary) hypertension; E78.5 Hyperlipidemia, unspecified; Z88.2 Allergy status to sulfonamides; Z88.8 Allergy status to other drugs, medicaments and biological substances; Z88.7 Allergy status to serum and vaccine; Z79.82 Long term (current) use of aspirin; Z79.84 Long term (current) use of oral hypoglycemic drugs; Z79.899 Other long term (current) drug therapy
CPT/HCPCS: 36415; 80053; 82150; 83605; 83690; 84484; 85025; 81001; 74176; 99284; 96374 ×2; J2405; J1885; S0119

== ENCOUNTER → 2021-11-23 | Outpatient (CLI) | payer MEDICARE ==
--- NOTE | 2021-11-28 11:55 | MM ---
Reason for exam: follow-up at short interval from prior study. Last mammogram was performed 6 months ago. History: Patient is postmenopausal and history of other cancer. Family history of breast cancer in maternal cousin at age 60 and breast cancer in maternal aunt at age 60. Benign MG stereo VAD BX LT of the left breast, May 22, 2021. Benign stereotactic core biopsy of the right breast, April 11, 2001. Took hormonal contraceptives for 4 years. Took estrogen for 4 months. Physical Findings: Nurse did not find any significant physical abnormalities on exam. MG 3D Diag Mammo W/Cad LT CC and MLO view(s) were taken of the left breast. Prior study comparison: May 16, 2021, left breast MG 3d work up w/cad LT. May 02, 2021, bilateral MG 3d screening mammo w/cad. There are scattered fibroglandular densities. Benign round and vascular calcifications. Clip at 9-10 o'clock from recent biopsy. Some increased density here could reflect residual post biopsy site changes. Reassess at 6 months. These results were verbally communicated with the patient and result sheet given to the patient on 11/23/21. ASSESSMENT: Probably benign, BI-RAD 3 RECOMMENDATION: Follow-up diagnostic mammogram of both breasts in 6 months.
== END | disposition home or self-care (01) ==
LOC: RADMAMWWP 12:51
PROVIDERS: ATTEND Internal Medicine Geriatric Medicine
DX: R92.2 Inconclusive mammogram (principal)
CPT/HCPCS: 77065; G0279; 77061

== ENCOUNTER → 2022-05-29 | Outpatient (CLI) | payer MEDICARE ==
[2022-05-29 13:56] VITALS: BP 160/70; PULSE 64; RESP 17; TEMP 97.8
--- NOTE | 2022-05-29 15:19 | P.HPOB ---
History of Present Illness H&P Date: 05/29/22 Chief Complaint: The patient is here for her routine gynecologic exam. This is a 72-year-old with an LMP of 1977. She is status post TIAN and later BSO for benign reasons. She is without gynecologic complaints. She previously was using estradiol vaginal cream because of frequent urinary tract infections, however, during the past year she has not been having the UTIs that she had in the past. She is sexually active and has had some vaginal dryness that she uses a lubricant for. She would like to resume estradiol vaginal cream. Review of Systems The patient has lost 7 pounds over the last year. She denies respiratory, cardiac, or G.I. problems. : She does urinate several times during the night and usually voids fairly large amounts at those times. Past Medical History Past Medical History: Cancer, Diabetes Mellitus, Hyperlipidemia, Hypertension Additional Past Medical History / Comment(s): Type 2 diabetes. Hiatal hernia. 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 She did have endometriosis. She says post TIAN and later BSO. History of Any Multi-Drug Resistant Organisms: None Reported Past Surgical History: Back Surgery, Cholecystectomy, Ear Surgery, Hysterectomy, Orthopedic Surgery, Tonsillectomy Additional Past Surgical History / Comment(s): BSO. Colonoscopy 2018(next after 10yr). cataract surgery bilat eyes. Macular eye surgery bilat, Squamous cell removal from the right arm. Past Anesthesia/Blood Transfusion Reactions: Postoperative Nausea & Vomiting (PONV) Past Psychological History: No Psychological Hx Reported Smoking Status: Never smoker Past Alcohol Use History: None Reported Past Drug Use History: None Reported Additional History: She has been since 1970 and is infrequently sexually active. Her has health issues including leg weakness related to polio. She is retired. - Past Family History Father Family Medical History: Myocardial Infarction ([place]) Mother Family Medical History: Coronary Artery Disease (CAD), Hypertension Additional Family Medical History / Comment(s): Maternal aunt had breast cancer. Medications and Allergies Home Medications Medication Instructions Recorded Confirmed Type Aspirin [Adult Low Dose Aspirin EC] 81 mg PO DAILY 10/07/18 05/29/22 History Diltiazem Cd [Cardizem Cd] 240 mg PO DAILY 10/07/18 05/29/22 History Omeprazole [PriLOSEC] 20 mg PO AC-BRKFST 10/07/18 05/29/22 History Rosuvastatin Calcium [Crestor] 2.5 mg PO WEEKLY 05/02/21 05/29/22 History dilTIAZem HCL [Cardizem] 120 mg PO HS 05/02/21 05/29/22 History metFORMIN HCL [Glucophage] 250 mg PO BID 05/02/21 05/29/22 History Olmesartan [Benicar] 20 mg PO HS 05/19/21 05/29/22 History ALPRAZolam [Xanax] 0.25 mg PO DIRECTED PRN 05/29/22 05/29/22 History Allergies Allergy/AdvReac Type Severity Reaction Status Date / Time Sulfa (Sulfonamide Allergy Rash/Hives Verified 05/29/22 13:48 Antibiotics) clonidine [From Catapres] AdvReac Unknown Verified 05/29/22 13:48 enalaprilat [From Vasotec] AdvReac Cough Verified 05/29/22 13:48 tetanus toxoid, adsorbed AdvReac Rash/Hives Verified 05/29/22 13:48 Exam Vital Signs Temp Pulse Resp BP Pulse Ox 05/29/22 13:54 97.8 F 64 17 160/70 96 Intake and Output 05/29/22 05/29/22 05/29/22 06:59 14:59 22:59 Other: Weight 58.06 kg Height 5 feet 2 inches, weight 128 pounds, BMI 23.4. This is a well-developed well-nourished white female who is alert and oriented times 3 in no acute distress. HEENT: Within normal limits. NECK: Supple without mass or thyromegaly. CHEST AND LUNGS: Clear to auscultation. HEART: Regular rate and rhythm. BREASTS: Are without mass or discharge. AXILLARY EXAM: Negative for adenopathy. BACK: Negative for CVA tenderness. ABDOMEN: Soft, nontender, without palpable masses. PELVIC EXAM: External genitalia appears normal with mild to moderate atrophy. Vagina appears normal with mild to moderate atrophy. There is no evidence of prolapse. Bimanual examination is negative for mass or tenderness. RECTAL EXAM: Rectovaginal exam is negative for mass or tenderness and is negative for occult blood. EXTREMITIES: Nontender. IMPRESSION: 1. 72-year-old menopausal female status post TIAN/BSO for benign reasons, with normal gynecologic exam. 2. The patient would like to resume estradiol vaginal cream for vaginal dryness and history of UTIs and urinary urgency in the past. 3. Elevated blood pressure with history of chronic hypertension. PLAN: 1. Pap smears have been discontinued. 2. Self breast awareness was discussed with the patient. We have also discussed symptoms associated with inflammatory breast cancer. 3. Diagnostic bilateral mammogram is due. The patient states she dilated for 1 additional month because she did get a booster shot 1 month ago. She is scheduled for her diagnostic mammogram on 06/26/2022. The order slip was given to the patient for this. 4. Osteoporosis prevention was discussed. I have stressed the importance of adequate calcium, vitamin D and regular exercise. Recommended amounts of calcium and vitamin D were also discussed. She is again declining bone density testing at this time. She will call if she changes her mind about this. 5. She will restart Estrace vaginal cream 1 g into the vagina 2 times weekly. The electronic prescription will be sent to [facility] pharmacy on . 6. She has completed her Covid vaccination series and has received 2 boosters. 7. I have recommended that she check her own blood pressure at home on a regular basis and follow-up with her PCP for blood pressure elevations. 8. She was advised to return in one year for her annual well woman exam.
== END | disposition home or self-care (01) ==
LOC: WWCWWP 13:40
PROVIDERS: ATTEND Obstetrics & Gynecology
DX: Z53.9 Procedure and treatment not carried out, unspecified reason (principal)

== ENCOUNTER → 2022-06-26 | Outpatient (CLI) | payer MEDICARE ==
--- NOTE | 2022-06-26 12:40 | MM ---
Reason for Exam: Follow-up at short interval from prior study. Last mammogram was performed 1 year(s) and 1 month(s) ago. Patient History: Menarche at age 12. First Full-Term at age 21. Left ovary removed at age 40. Right ovary removed at age 40. Hysterectomy at age 26. Postmenopausal. Other cancer. Estrogen for 4 months. Patient used Hormonal Contraceptives for 4 years. 05/22/2021, Benign Core Biopsy on the left side. 04/11/2001, Benign Stereotactic Core Biopsy on the right side. Maternal cousin had breast cancer, age 60. Maternal aunt had breast cancer, age 60. Risk Values: Jessie 5 year model risk: 2.2%. NCI Lifetime model risk: 5.0%. Tissue Density: The breast tissue is heterogeneously dense. This may lower the sensitivity of mammography. Findings: Analyzed By CAD. No mass or suspicious calcifications seen. Microclip marker is in place. Overall Assessment: Benign, BI-RAD 2 Management: Screening Mammogram of both breasts in 1 year. A clinical breast exam by your physician is recommended on an annual basis and results should be correlated with mammographic findings. This exam should not preclude additional follow-up of suspicious palpable abnormalities. Results were given to the patient verbally at the time of exam. Electronically signed and approved by: Jaspal Lund M.D. Radiologis
== END | disposition home or self-care (01) ==
LOC: RADMAMWWP 10:48
PROVIDERS: ATTEND Internal Medicine Geriatric Medicine
DX: R92.8 Other abnormal and inconclusive findings on diagnostic imaging of breast (principal)
CPT/HCPCS: 77066; G0279; 77062

== ENCOUNTER 2023-04-01 06:11 | Day surgery (SDC) | payer MEDICARE ==
[2023-04-01] MEDS ORDERED: ALPRAZolam 0.25 MG TAB PO PRN (06:21)
[2023-04-01] MEDS ORDERED: ASPIRIN 325 MG TAB PO STA (06:21)
[2023-04-01] MEDS ORDERED: NITROGLYCERIN SL TABS 0.4 MG TAB SUBLINGUAL PRN ×2 (06:21→08:41)
[2023-04-01] MEDS ORDERED: SODIUM CHLORIDE 0.9% 1,000 ML in EMPTY BAG 1 BAG IV SCH ×2 (06:21→08:45)
[2023-04-01] MEDS ORDERED: HEPARIN SODIUM,PORCINE 2,500 UNIT in SODIUM CHLORIDE 0.9% 250 ML IRRIGATION PRN (06:21)
[2023-04-01] MEDS ORDERED: HEPARIN SODIUM,PORCINE 10,000 UNIT in SODIUM CHLORIDE 0.9% 1,000 ML IRRIGATION PRN (06:21)
[2023-04-01] MEDS ORDERED: ALPRAZolam 0.5 MG TAB PO PRN (06:21)
[2023-04-01] MEDS ORDERED: ATORVASTATIN 80 MG TAB PO STA (06:21)
[2023-04-01] MEDS ORDERED: SODIUM CHLORIDE 0.9% 1,000 ML IV ONE (06:40)
[2023-04-01 06:51] LABS: Glucose,Whole Blood 157 mg/dL (70-110)
[2023-04-01 06:54] VITALS: RESP 16; TEMP 98.1
[2023-04-01] MEDS ORDERED: VERAPAMIL 2.5 MG/ML 2 ML AMP ONE ×2 (07:11→07:52)
[2023-04-01] MEDS ORDERED: fentaNYL (PF) 50 MCG/ML 2 ML AMP ONE (07:31)
[2023-04-01] MEDS ORDERED: HEPARIN SODIUM 1,000 UN/ML (10ML VL) ONE (07:31)
[2023-04-01] MEDS ORDERED: fentaNYL (PF) 50 MCG/ML 2 ML AMP IV ONE (07:34)
[2023-04-01] MEDS ORDERED: LIDOCAINE 1% INJ 10MG/ML (5 ML VIAL-PF) SQ ONE (07:36)
[2023-04-01] MEDS: VERAPAMIL SYRINGE (5 MG/10 ML) INTRAARTER ONE ×2 (07:37→07:42)
[2023-04-01] MEDS: MIDAZOLAM 2 MG/2 ML VIAL IV ONE ×2 (07:41→07:53)
[2023-04-01] MEDS: HEPARIN SODIUM 1,000 UN/ML (10ML VL) IV ONE ×2 (07:44→07:50)
[2023-04-01] MEDS ORDERED: CLOPIDOGREL 75 MG TAB ONE (07:49)
[2023-04-01] MEDS ORDERED: CLOPIDOGREL 75 MG TAB PO ONE (07:52)
[2023-04-01] MEDS ORDERED: VERAPAMIL SYRINGE (5 MG/10 ML) INTRAARTER ONE (07:55)
[2023-04-01] MEDS ORDERED: MIDAZOLAM 2 MG/2 ML VIAL IV ONE (07:58)
[2023-04-01] MEDS ORDERED: IOPAMIDOL-370 100ML BTL INJ ONE ×2 (08:07→08:30)
[2023-04-01] MEDS ORDERED: NITROGLYCERIN 1000MCG/10ML SYRINGE INTRACORON ONE (08:13)
[2023-04-01] MEDS ORDERED: RX INFO: IV CONTRAST WAS GIVEN 1 EACH MISC MISCELLANE PRN (08:41)
[2023-04-01] MEDS ORDERED: ATROPINE SULFATE 0.1 MG/ML 10ML SYRINGE IV PRN (08:41)
[2023-04-01] MEDS ORDERED: MAG HYDROX/AL HYDROX/SIMETH 30 ML CUP PO PRN (08:41)
--- NOTE | 2023-04-01 08:53 | P.CARDCATH ---
Date of Procedure: 04/01/23 Description of Procedure: Cardiac Catheterization: The patient is a 73-year-old female with history of hypertension, hyperlipidemia and diabetes who had a recent abnormal MPI. Recommendations were made regarding cardiac catheterization, the risks and the complications were discussed with the patient who is in full understanding and agreement. Procedure Description: Patient was brought to research laboratory specialist in fasting semi-sedated state after receiving Fentanyl and Benadryl achieiving moderate conscious sedated state. Using Xylocaine Anesthesia and Seldinger technique, a 6-Argentine sheath was introduced in the right radial artery . Subsequently, selective coronary angiography was performed using a 5-Argentine 3.5 bend Henrietta catheter. Multiple views of the coronary artery including hemiaxial views were obtained. The right Henrietta catheter was used to cross the aortic valve and LVEDP was calculated. PCI: After removing the catheters attempt to advance an EBU 6-Argentine 3.75 guiding catheter was unsuccessful, that catheter was exchanged for 6-Argentine CLS 3.5 guiding catheter, after cannulating the left main a 0.014 BMW J-wire was positioned in the distal LAD and another BMW 0.014 J-wire was positioned in the diagonal branch, subsequently a 2.5 x 12 mm Treck was advanced and one inflation at 8 eloy was done. Subsequently the balloon was removed and a 2.75 x 23 mm Xience bethany point stent was deployed at 16 eloy, after removing the balloon a [employer] seneca eye intravascular ultrasound catheter was introduced and images were obtained. Subsequently a 3.0 x 12 mm NC Treck balloon was advanced and one inflation at 10 eloy in the proximal segment of the stent was performed. After removing the balloon and the wire images were obtained and revealed stable successful stenting. Following that, catheter and sheath were removed. Hemostasis was obtained with deployment of TR band . There was no immediate complication. Patient was returned to room in stable condition. Of note, the patient received a total of 5000 units of intravenous heparin as well as intra- arterial verapamil. Her ACT was monitored. She received an oral loading dose of clopidogrel. She had throat discomfort and EKG changes that resolved at the end of the procedure. Findings: Fluoroscopy: Calcification of the LAD and the RCA was noted. Left main: This is a short sized vessel, bifurcating into LAD and left circumflex, left main has no high-grade stenosis LAD: This is a large-size vessel giving rise to a large diagonal branch proximally. At the takeoff of the diagonal branch there is a 95% eccentric lesion, there is poststenotic dilatation. The rest of the vessel has no high- grade stenosis Left circumflex: This is a nondominant vessel giving rise to a large obtuse marginal branch, the left circumflex and its branches have no evidence of high- grade stenosis RCA: This is a large dominant vessel bifurcating into PDA and PLV the proximal RCA has stent 20% stenosis with no high-grade stenosis Left Ventriculogram: Not performed Hemodynamics: There was no gradient across the aortic valve , LVEDP was 16-20 mmHg Conclusion: 1. Calcified LAD and RCA 2. Critical stenosis in the proximal LAD 3. Mild disease in the proximal RCA 4. Successful stenting of the proximal LAD with reduction of stenosis from 95% to 0% with intravascular ultrasound imaging. Recommendations: The patient will continue on aspirin and Plavix for 6 months in addition to aggressive coronary modification. The findings and the recommendations were discussed with the patient and the family and they were in full understanding and agreement. Duration of sedation is 55 minutes.
[2023-04-01] MEDS ORDERED: ASPIRIN 81 MG PO SCH (09:00)
[2023-04-01] MEDS ORDERED: amLODIPine 5 MG TAB PO SCH (09:00)
[2023-04-01] MEDS ORDERED: VALSARTAN 160 MG TAB PO SCH (09:00)
[2023-04-01] MEDS ORDERED: carvediloL 6.25 MG TAB PO SCH (09:00)
[2023-04-01] MEDS ORDERED: SODIUM CHLORIDE 0.9% 500 ML 500 ML IV ONE (10:00)
[2023-04-01] MEDS ORDERED: CLOPIDOGREL 75 MG TAB PO SCH (13:00)
[2023-04-01 14:36] VITALS: BP 128/78; PULSE 66
[2023-04-01] MEDS ORDERED: ATORVASTATIN 80 MG TAB PO SCH (21:00)
[2023-04-01] MEDS ORDERED: ZOLPIDEM 5 MG TAB PO PRN (21:00)
[2023-04-02] MEDS ORDERED: NON FORMULARY DRUG (Omeprazole 20 MG Capsule.Dr) PO SCH (07:30)
[2023-04-02] MEDS ORDERED: CLOPIDOGREL 75 MG TAB PO SCH (09:00)
== END 2023-04-01 13:30 | disposition home or self-care (01) ==
LOC: CATHCVL 06:11
PROVIDERS: ATTEND Internal Medicine Interventional Cardiology
DX: I25.10 Atherosclerotic heart disease of native coronary artery without angina pectoris (principal); I10 Essential (primary) hypertension; E78.5 Hyperlipidemia, unspecified; E11.9 Type 2 diabetes mellitus without complications; Z79.82 Long term (current) use of aspirin; Z88.2 Allergy status to sulfonamides; Z79.84 Long term (current) use of oral hypoglycemic drugs; Z79.899 Other long term (current) drug therapy
CPT/HCPCS: 92978; 93458; C9600; C1769 ×3; C1887 ×2; C1894; C1725 ×2; C1874; J2250; J2001; J3010; J1644; Q9967

== ENCOUNTER 2023-04-15 18:29 | Observation (INO) | payer MEDICARE ==
[2023-04-15] MEDS ORDERED: NITROGLYCERIN OINT 1 INCH/GM PACKET TOPICAL STA (19:22)
[2023-04-15] MEDS ORDERED: ASPIRIN 81 MG PO STA (19:22)
--- NOTE | 2023-04-15 19:27 | ED ---
General Adult HPI - General Chief complaint: Chest Pain Stated complaint: chest pain Time Seen by Provider: 04/15/23 18:50 Source: patient, RN notes reviewed, old records reviewed Mode of arrival: ambulatory Limitations: no limitations - History of Present Illness Initial comments: This is a 73-year-old female who has a past medical history significant for a cardiac stent about 2 weeks ago. Patient also has high blood pressure high cost. Family history of heart disease. Patient comes in today because his morning after she went shopping started having chest pain that lasted about 15 minutes and she describes the chest discomfort. Patient states the pain also radiates on her left arm. Patient states the pain has come and gone all day long. Patient denies any shortness of breath or difficulty breathing. Patient denies any diaphoretic episodes. Patient states she does have some nausea. Patient denies abdominal pain patient denies any vomiting or diarrhea. Patient denies any lightheadedness or dizziness. Patient has a headache patient denies numbness weakness. Patient denies any swelling to the legs or calf tenderness. Patient currently is chest pain-free - Related Data Home Medications Medication Instructions Recorded Confirmed Aspirin [Adult Low Dose Aspirin EC] 81 mg PO PC-SUPPER 10/07/18 04/01/23 Omeprazole [PriLOSEC] 20 mg PO AC-BRKFST 10/07/18 04/01/23 metFORMIN HCL [Glucophage] 250 mg PO BID-W/MEALS 05/02/21 04/01/23 ALPRAZolam [Xanax] 0.25 mg PO DIRECTED PRN 05/29/22 04/01/23 Cranberry Fruit Extract [Cranberry] 500 mg PO QAM 03/26/23 04/01/23 Loperamide [Imodium] 2 mg PO DAILY 03/26/23 03/26/23 Multivitamin [Multivitamins Adult 1 tab PO QAM 03/26/23 04/01/23 Gummies] Theragran Hair, Skin And Nails 1 cap PO QAM 03/26/23 04/01/23 Valsartan 160 mg PO BID 03/26/23 04/01/23 amLODIPine [Norvasc] 5 mg PO BID 03/26/23 04/01/23 carvediloL [Coreg] 6.25 mg PO BID 03/26/23 04/01/23 Previous Rx's Medication Instructions Recorded Clopidogrel [Plavix] 75 mg PO DAILY #90 tablet 04/01/23 Rosuvastatin [Crestor] 10 mg PO DAILY 90 Days tablet 04/01/23 Allergies Allergy/AdvReac Type Severity Reaction Status Date / Time Sulfa (Sulfonamide Allergy Rash/Hives Verified 04/15/23 18:44 Antibiotics) clonidine [From Catapres] AdvReac SHAKES Verified 04/15/23 18:44 enalaprilat [From Vasotec] AdvReac Cough Verified 04/15/23 18:44 tetanus toxoid, adsorbed AdvReac Rash/Hives Verified 04/15/23 18:44 Review of Systems ROS Statement: Those systems with pertinent positive or pertinent negative responses have been documented in the HPI. ROS Other: All systems not noted in ROS Statement are negative. Past Medical History Past Medical History: Cancer, Diabetes Mellitus, Hyperlipidemia, Hypertension Additional Past Medical History / Comment(s): Type 2 diabetes. Hiatal hernia. 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 PAST SOLID STATE TESTER HISTORY: She has no history of STDs. She did have endometriosis. She says post TIAN and later BSO. Heart Cath April 01- 2022 History of Any Multi-Drug Resistant Organisms: None Reported Past Surgical History: Back Surgery, Cholecystectomy, Ear Surgery, Hysterectomy, Orthopedic Surgery, Tonsillectomy Additional Past Surgical History / Comment(s): BSO. Colonoscopy 2017(next after 10yr). cataract surgery bilat eyes. Macular eye surgery bilat, Squamous cell removal from the right arm. Past Anesthesia/Blood Transfusion Reactions: Postoperative Nausea & Vomiting (PONV) Past Psychological History: No Psychological Hx Reported Smoking Status: Never smoker Past Alcohol Use History: None Reported Past Drug Use History: None Reported - Past Family History Father Family Medical History: Myocardial Infarction ([place]) Mother Family Medical History: Coronary Artery Disease (CAD), Hypertension Additional Family Medical History / Comment(s): Maternal aunt had breast cancer. General Exam - General Exam Comments Initial Comments: GENERAL: Patient is well-developed and well-nourished. Patient is nontoxic and well- hydrated and is in mild distress. ENT: Neck is soft and supple. No significant lymphadenopathy is noted. Oropharynx is clear. Moist mucous membranes. Neck has full range of motion without eliciting any pain. EYES: The sclera were anicteric and conjunctiva were pink and moist. Extraocular movements were intact and pupils were equal round and reactive to light. Eyelids were unremarkable. PULMONARY: Unlabored respirations. Good breath sounds bilaterally. No audible rales rhonchi or wheezing was noted. CARDIOVASCULAR: There is a regular rate and rhythm without any murmurs gallops or rubs. ABDOMEN: Soft and nontender with normal bowel sounds. SKIN: Skin is clear with no lesions or rashes and otherwise unremarkable. NEUROLOGIC: Patient is alert and oriented x3. Cranial nerves II through XII are grossly intact. Motor and sensory are also intact. Normal speech, volume and content. Symmetrical smile. MUSCULOSKELETAL: Normal extremities with adequate strength and full range of motion. No lower extremity swelling or edema. No calf tenderness. LYMPHATICS: No significant lymphadenopathy is noted PSYCHIATRIC: Normal psychiatric evaluation. Limitations: no limitations Course Vital Signs 04/15/23 04/15/23 18:39 19:01 Temperature 97.4 F L Pulse Rate 76 78 Respiratory 20 18 Rate Blood Pressure 184/70 168/72 O2 Sat by Pulse 97 Oximetry Medical Decision Making - Medical Decision Making EKG is interpreted by myself shows a sinus rhythm at 76 bpm IA interval 179 dresses 85 Q-T intervals 366 QTC is [address] segment elevation or depression. Was pt. sent in by a medical professional or institution (, PA, HAND CULTIVATOR, urgent care, hospital, or custodial...) When possible be specific @ -No Did you speak to anyone other than the patient for history (EMS, parent, family, police, friend...)? What history was obtained from this source @ -No Did you review nursing and triage notes (agree or disagree)? Why? @ -I reviewed and agree with nursing and triage notes Were old charts reviewed (outside hosp., previous admission, EMS record, old EKG, old radiological studies, urgent care reports/EKG's, custodial records)? Report findings @ -No old charts were reviewed Differential Diagnosis (chest pain, altered mental status, abdominal pain women, abdominal pain men, vaginal bleeding, weakness, fever, dyspnea, syncope, headache, dizziness, GI bleed, back pain, seizure, CVA, palpatations, mental health, musculoskeletal)? @ -Differential Chest Pain: Stable Angina, Unstable Angina, STEMI, NSTEMI Aortic Dissection, Pneumothorax, Musculoskeletal, Esophageal Spasm GERD, Cholecystitis, Pancreatitis, Zoster, this is not meant to be an all-inclusive list. EKG interpreted by me (3pts min.). @ -As above X-rays interpreted by me (1pt min.). @ -X-ray shows no acute abnormality CT interpreted by me (1pt min.). @ -None done U/S interpreted by me (1pt. min.). @ -None done What testing was considered but not performed or refused? (CT, X-rays, U/S, labs)? Why? @ -None What meds were considered but not given or refused? Why? @ -None Did you discuss the management of the patient with other professionals (professionals i.e. , PA, HAND CULTIVATOR, lab, RT, psych nurse, social work case manager, bobbin cleaning machine operator, teacher, transport corps officer, showcase maker)? Give summary @ -I spoke with the [place] [facility] agreed to admit the patient and the patient wrote admitting orders Was smoking cessation discussed for >3mins.? @ -No Was critical care preformed (if so, how long)? @ -No Were there social determinants of health that impacted care today? How? (Homelessness, low income, unemployed, alcoholism, drug addiction, transportation, low edu. Level, literacy, decrease access to med. care, penitentiary, rehab)? @ -No Was there de-escalation of care discussed even if they declined (Discuss DNR or withdrawal of care, Hospice)? DNR status @ -No What co-morbidities impacted this encounter? (DM, HTN, Smoking, COPD, CAD, Cancer, CVA, ARF, Chemo, Hep., AIDS, mental health diagnosis, sleep apnea, morbid obesity)? @ -None Was patient admitted / discharged? Hospital course, mention meds given and route, prescriptions, significant lab abnormalities, going to OR and other pertinent info. @ -Patient came in having chest pain since 10:00 patient states intermittent pain lasted about 15 minutes at a time it radiated down the left arm. Enzymes were done here in the hospital they were negative x-ray is negative patient still had chest pain occasionally in the emergency department but currently is chest pain-free. I spoke with the [facility] they agreed to admit the patient admitted the patient wrote admitting orders. Undiagnosed new problem with uncertain prognosis? @ -No Drug Therapy requiring intensive monitoring for toxicity (Heparin, Nitro, Insulin, Cardizem)? @ -No Were any procedures done? @ -No Diagnosis/symptom? @ -Chest pain Acute, or Chronic, or Acute on Chronic? @ -Acute Uncomplicated (without systemic symptoms) or Complicated (systemic symptoms)? @ -Complicated Side effects of treatment? @ -No Exacerbation, Progression, or Severe Exacerbation? @ -No Poses a threat to life or bodily function? How? (Chest pain, [place], [place], pneumonia, PE, COPD, DKA, ARF, appy, cholecystitis, CVA, Diverticulitis, Homicidal, Suicidal, threat to staff... and all critical care pts) @ -Yes could lead to poor perfusion and end organ dysfunction - Lab Data Result diagrams: 04/15/23 19:29 04/15/23 19:29 Lab Results 04/15/23 04/15/23 04/15/23 Range/Units 19:29 19:29 19:29 WBC 5.6 (3.8-10.6) k/uL RBC 3.61 L (3.80-5.40) m/uL Hgb 10.6 L (11.4-16.0) gm/dL Hct 30.5 L (34.0-46.0) % MCV 84.6 (80.0-100.0) fL MCH 29.3 (25.0-35.0) pg MCHC 34.7 (31.0-37.0) g/dL RDW 13.3 (11.5-15.5) % Plt Count 182 (150-450) k/uL MPV 8.9 Neutrophils % 65 % Lymphocytes % 23 % Monocytes % 6 % Eosinophils % 3 % Basophils % 1 % Neutrophils # 3.6 (1.3-7.7) k/uL Lymphocytes # 1.3 (1.0-4.8) k/uL Monocytes # 0.3 (0-1.0) k/uL Eosinophils # 0.2 (0-0.7) k/uL Basophils # 0.0 (0-0.2) k/uL PT 9.7 (9.0-12.0) sec INR 0.9 (<1.2) APTT 23.4 (22.0-30.0) sec Sodium 132 L (137-145) mmol/L Potassium 4.6 (3.5-5.1) mmol/L Chloride 101 (98-107) mmol/L Carbon Dioxide 23 (22-30) mmol/L Anion Gap 8 mmol/L BUN 20 H (7-17) mg/dL Creatinine 1.08 H (0.52-1.04) mg/dL Est GFR (CKD-EPI)AfAm 58 (>60 ml/min/1.73 sqM) Est GFR (CKD-EPI)NonAf 50 (>60 ml/min/1.73 sqM) Glucose 153 H (74-99) mg/dL Calcium 9.3 (8.4-10.2) mg/dL Magnesium 1.8 (1.6-2.3) mg/dL Total Bilirubin 0.3 (0.2-1.3) mg/dL AST 22 (14-36) U/L ALT 17 (4-34) U/L Alkaline Phosphatase 63 (38-126) U/L Troponin I (0.000-0.034) ng/mL Total Protein 7.0 (6.3-8.2) g/dL Albumin 4.4 (3.5-5.0) g/dL 04/15/23 Range/Units 19:29 WBC (3.8-10.6) k/uL RBC (3.80-5.40) m/uL Hgb (11.4-16.0) gm/dL Hct (34.0-46.0) % MCV (80.0-100.0) fL MCH (25.0-35.0) pg MCHC (31.0-37.0) g/dL RDW (11.5-15.5) % Plt Count (150-450) k/uL MPV Neutrophils % % Lymphocytes % % Monocytes % % Eosinophils % % Basophils % % Neutrophils # (1.3-7.7) k/uL Lymphocytes # (1.0-4.8) k/uL Monocytes # (0-1.0) k/uL Eosinophils # (0-0.7) k/uL Basophils # (0-0.2) k/uL PT (9.0-12.0) sec INR (<1.2) APTT (22.0-30.0) sec Sodium (137-145) mmol/L Potassium (3.5-5.1) mmol/L Chloride (98-107) mmol/L Carbon Dioxide (22-30) mmol/L Anion Gap mmol/L BUN (7-17) mg/dL Creatinine (0.52-1.04) mg/dL Est GFR (CKD-EPI)AfAm (>60 ml/min/1.73 sqM) Est GFR (CKD-EPI)NonAf (>60 ml/min/1.73 sqM) Glucose (74-99) mg/dL Calcium (8.4-10.2) mg/dL Magnesium (1.6-2.3) mg/dL Total Bilirubin (0.2-1.3) mg/dL AST (14-36) U/L ALT (4-34) U/L Alkaline Phosphatase (38-126) U/L Troponin I <0.012 (0.000-0.034) ng/mL Total Protein (6.3-8.2) g/dL Albumin (3.5-5.0) g/dL Disposition Clinical Impression: Chest pain Disposition: ADMITTED IP TO THIS [facility] Referrals: George Cordova MD [Primary Care Provider] - 1-2 days Time of Disposition: 20:44
[2023-04-15 19:36] LABS: Basophils % (A) 1 %; Eosinophils # (A) 0.2 k/uL (0-0.7); Eosinophils % (A) 3 %; HCT 30.5 % (34.0-46.0); HGB 10.6 gm/dL (11.4-16.0); Lymphocytes # (A) 1.3 k/uL (1.0-4.8); Lymphocytes % (A) 23 %; MCH 29.3 pg (25.0-35.0); MCHC 34.7 g/dL (31.0-37.0); MCV 84.6 fL (80.0-100.0); Mean Platelet Volume 8.9; Monocytes # (A) 0.3 k/uL (0-1.0); Monocytes % (A) 6 %; Neutrophils # (A) 3.6 k/uL (1.3-7.7); Neutrophils % (A) 65 %; Platelet Count 182 k/uL (150-450); RBC 3.61 m/uL (3.80-5.40); RDW 13.3 % (11.5-15.5); WBC 5.6 k/uL (3.8-10.6)
[2023-04-15 19:45] LABS: ALT 17 U/L (4-34); AST 22 U/L (14-36); African American GFR (CKD) 58 (>60 ml/min/1.73 sqM); Albumin 4.4 g/dL (3.5-5.0); Alkaline Phosphatase 63 U/L (38-126); Anion Gap 8 mmol/L; Blood Urea Nitrogen 20 mg/dL (7-17); Calcium 9.3 mg/dL (8.4-10.2); Carbon Dioxide 23 mmol/L (22-30); Chloride 101 mmol/L (98-107); Glucose 153 mg/dL (74-99); INR 0.9 (<1.2); Magnesium 1.8 mg/dL (1.6-2.3); Non-African American GFR(CKD) 50 (>60 ml/min/1.73 sqM); Partial Thromboplastin Time 23.4 sec (22.0-30.0); Potassium 4.6 mmol/L (3.5-5.1); Prothrombin Time 9.7 sec (9.0-12.0); Sodium 132 mmol/L (137-145); Total Bilirubin 0.3 mg/dL (0.2-1.3)
--- NOTE | 2023-04-15 19:59 | XR ---
EXAMINATION TYPE: XR chest 2V DATE OF EXAM: 04/15/2023 7:41 PM COMPARISON: Chest radiographs from 09/28/2011 TECHNIQUE: XR chest 2V Frontal and lateral views of the chest. CLINICAL INDICATION:Female, 73 years old with history of Chest Pain; FINDINGS: Lungs/Pleura: There is no evidence of pleural effusion, focal consolidation, or pneumothorax. Pulmonary vascularity: Unremarkable. Heart/mediastinum: Cardiomediastinal silhouette is unremarkable. Atherosclerotic calcifications are seen in the aorta. Musculoskeletal: No acute osseous pathology. Other findings: None IMPRESSION: No acute cardiopulmonary disease/process.
[2023-04-15] MEDS ORDERED: NITROGLYCERIN SL TABS 0.4 MG TAB SUBLINGUAL PRN (20:44)
[2023-04-15] MEDS ORDERED: ALPRAZolam 0.25 MG TAB PO STA (21:52)
[2023-04-15] MEDS ORDERED: ATORVASTATIN 20 MG TAB PO SCH (22:00)
[2023-04-15] MEDS: carvediloL 6.25 MG TAB PO SCH (22:07)
[2023-04-16] MEDS: NITROGLYCERIN OINT 1 INCH/GM PACKET TOPICAL SCH ×3 (00:51→12:26)
[2023-04-16] MEDS: carvediloL 6.25 MG TAB PO SCH (07:29)
[2023-04-16 07:36] LABS: Glucose,Whole Blood 131 mg/dL (70-110)
[2023-04-16] MEDS ORDERED: amLODIPine 5 MG TAB PO SCH (08:30)
[2023-04-16] MEDS ORDERED: VALSARTAN 160 MG TAB PO SCH (08:45)
[2023-04-16] MEDS ORDERED: CLOPIDOGREL 75 MG TAB PO SCH (09:00)
[2023-04-16] MEDS ORDERED: ASPIRIN 81 MG PO SCH (09:00)
[2023-04-16] MEDS ORDERED: ASPIRIN 325 MG TAB PO SCH (09:00)
[2023-04-16 09:38] LABS: Chol/HDL Ratio 2.46 Ratio; LDL Cholesterol,Calculated 47.6 mg/dL (0.0-131.0)
[2023-04-16] MEDS ORDERED: DEXTROSE 50% SYRINGE 50 ML IVP PRN ×2 (09:45)
[2023-04-16 09:53] VITALS: RESP 18
--- NOTE | 2023-04-16 11:27 | P.HPIM ---
History of Present Illness H&P Date: 04/16/23 History of present illness; patient is 73-year-old lady with past medical histor y significant for coronary artery disease, hypertension, diabetes mellitus, presented to the ER because of chest pain. Patient stated that she had a stent placed a couple of weeks ago. Patient woke up to go to shopping this morning when he started having chest pain that was pressure-like, intermittent, radiating to her left shoulder. No aggravating or relieving factors associated with this chest pain. Patient kept having these episodes of chest pain which is intermittent lasting between 10-15 minutes every time throughout the day. Denied any palpitations. Denied any shortness of breath. Was complaining of some episodes of nausea. Denies abdominal pain. Denied any fever or chills. B ecause of this chest pain, patient came to ER Initial lab work done in the ER showed abusive 5.6, hemoglobin 10.6, platelet count 182, sodium 132, potassium 4.6, BUN 20, creatinine 1.08, glucose 153, troponin 0.012, EKG done in the ER heart rate 76, QRS 85, no segment elevation, no T-wave inversion. Chest x-ray done in the ER showed no acute cardiac process patient admitted to medicine service REVIEW OF SYSTEMS: CONSTITUTIONAL: No fever, no malaise, no fatigue. HEENT: No recent visual problems or hearing problems. Denied any sore throat. CARDIOVASCULAR: As mentioned in HPI PULMONARY: No shortness of breath, no cough, no hemoptysis. GASTROINTESTINAL: No diarrhea, no abdominal pain. NEUROLOGICAL: No headaches, no weakness, no numbness. HEMATOLOGICAL: Denies any bleeding or petechiae. GENITOURINARY: Denies any burning micturition, frequency, or urgency. MUSCULOSKELETAL/RHEUMATOLOGICAL: Denies any joint pain, swelling, or any muscle pain. ENDOCRINE: Denies any polyuria or polydipsia. The rest of the 14-point review of systems is negative. PHYSICAL EXAMINATION: GENERAL: The patient is alert and oriented x3, not in any acute distress. Well developed, well nourished. HEENT: Pupils are round and equally reacting to light. EOMI. No scleral icterus. No conjunctival pallor. Normocephalic, atraumatic. No pharyngeal erythema. No thyromegaly. CARDIOVASCULAR: S1 and S2 present. No murmurs, rubs, or gallops. PULMONARY: Chest is clear to auscultation, no wheezing or crackles. ABDOMEN: Soft, nontender, nondistended, normoactive bowel sounds. No palpable organomegaly. MUSCULOSKELETAL: No joint swelling or deformity. EXTREMITIES: No cyanosis, clubbing, or pedal edema. NEUROLOGICAL: Gross neurological examination did not reveal any focal deficits. SKIN: No rashes. Assessment and plan Chest pain History of coronary artery disease Hypertension Diabetes mellitus Monitor vital signs Monitor CBC Monitor CMP Continue telemetry monitoring Continue aspirin and Plavix Continue Coreg Continue Crestor Continue Norvasc Trend troponins Consult cardiology Labs and medication were reviewed.. Continue same treatment. Continue with symptomatic treatment. Resume home medication. Monitor labs and vitals. DVT and GI prophylaxis. Further recommendations as per clinical course of the patient Past Medical History Past Medical History: Cancer, Diabetes Mellitus, Hyperlipidemia, Hypertension Additional Past Medical History / Comment(s): Type 2 diabetes. Hiatal hernia. 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 She did have endometriosis. She says post TIAN and later BSO. Heart Cath April 01- 2022 History of Any Multi-Drug Resistant Organisms: None Reported Past Surgical History: Back Surgery, Cholecystectomy, Ear Surgery, Hysterectomy, Orthopedic Surgery, Tonsillectomy Additional Past Surgical History / Comment(s): BSO. Colonoscopy 2017(next after 10yr). cataract surgery bilat eyes. Macular eye surgery bilat, Squamous cell removal from the right arm. Past Anesthesia/Blood Transfusion Reactions: Postoperative Nausea & Vomiting (PONV) Past Psychological History: No Psychological Hx Reported Smoking Status: Never smoker Past Alcohol Use History: None Reported Past Drug Use History: None Reported - Past Family History Father Family Medical History: Myocardial Infarction ([place]) Mother Family Medical History: Coronary Artery Disease (CAD), Hypertension Additional Family Medical History / Comment(s): Maternal aunt had breast cancer. Medications and Allergies Home Medications Medication Instructions Recorded Confirmed Type Aspirin [Adult Low Dose Aspirin EC] 81 mg PO W/SUPPER 10/07/18 04/15/23 History Omeprazole [PriLOSEC] 20 mg PO DAILY 10/07/18 04/15/23 History metFORMIN HCL [Glucophage] 500 mg PO BID-W/MEALS 05/02/21 04/15/23 History ALPRAZolam [Xanax] 0.125 mg PO HS 05/29/22 04/15/23 History Multivitamin [Multivitamins Adult 1 tab PO DAILY 03/26/23 04/15/23 History Gummies] amLODIPine [Norvasc] 5 mg PO BID-W/MEALS 03/26/23 04/15/23 History carvediloL [Coreg] 6.25 mg PO BID@1330,2230 03/26/23 04/15/23 History Clopidogrel [Plavix] 75 mg PO DAILY #90 tablet 04/01/23 04/15/23 Rx Cefuroxime [Ceftin] 250 mg PO BID 04/15/23 04/15/23 History Nitroglycerin Sl Tabs [Nitrostat] 0.4 mg SUBLINGUAL Q5M PRN 04/15/23 04/15/23 History Rosuvastatin [Crestor] 10 mg PO DAILY@199904/15/23 04/15/23 History Valsartan [Diovan] 160 mg PO BID-W/MEALS 04/15/23 04/15/23 History Vitamin C/Biotin [Hair, Skin and 1 tab PO DAILY 04/15/23 04/15/23 History Nails Chew] Allergies Allergy/AdvReac Type Severity Reaction Status Date / Time Sulfa (Sulfonamide Allergy Rash/Hives Verified 04/15/23 20:44 Antibiotics) clonidine [From Catapres] AdvReac SHAKES Verified 04/15/23 20:44 enalaprilat [From Vasotec] AdvReac Cough Verified 04/15/23 20:44 tetanus toxoid, adsorbed AdvReac Rash/Hives Verified 04/15/23 20:44 Physical Exam Vitals: Vital Signs Temp Pulse Resp BP Pulse Ox 04/16/23 09:17 66 20 150/71 04/16/23 07:27 72 18 154/65 04/16/23 00:50 65 16 118/59 98 04/15/23 22:09 81 18 134/65 96 04/15/23 20:51 102 H 18 145/65 96 04/15/23 19:01 78 18 168/72 04/15/23 18:39 97.4 F L 76 20 184/70 97 Intake and Output 04/15/23 04/16/23 04/16/23 22:59 06:59 14:59 Other: Weight 56.699 kg Results CBC & Chem 7: 04/15/23 19:29 04/15/23 19:29 Labs: Abnormal Lab Results - Last 24 Hours (Table) 04/15/23 04/15/23 04/16/23 Range/Units 19:29 19:29 07:35 RBC 3.61 L (3.80-5.40) m/uL Hgb 10.6 L (11.4-16.0) gm/dL Hct 30.5 L (34.0-46.0) % Sodium 132 L (137-145) mmol/L BUN 20 H (7-17) mg/dL Creatinine 1.08 H (0.52-1.04) mg/dL Glucose 153 H (74-99) mg/dL POC Glucose (mg/dL) 131 H (70-110) mg/dL
[2023-04-16 12:21] VITALS: BP 129/68; PULSE 76; TEMP 98.5
[2023-04-16] MEDS ORDERED: INSULIN ASPART (NovoLOG) 100 UNIT/ML VIAL SQ SCH (12:30)
[2023-04-16] MEDS ORDERED: carvediloL 6.25 MG TAB PO SCH (13:30)
--- NOTE | 2023-04-16 15:44 | P.CRDCN ---
History of Present Illness Consult date: 04/16/23 Consult reason: chest pain History of present illness: History of present illness: This is a 73-year-old female patient of Dr. Mathews with past medical history of coronary artery disease status post stent of the LAD, diabetes, hypertension, hyperlipidemia, family history number premature CAD. Patient underwent recent stent placement on April 01 and states she has been feeling great since that time. She went grocery shopping and developed chest pain about 10:30. She felt a little thumping pain and went into her left arm. She did not take nitroglycerin. She didn't feel right. The pain started around 10:30 in the morning and lasted until she arrived at the hospital. It has subsequently resolved. Blood pressure initially 154/65. She is scheduled for stress test in the office on 04/23. Patient also states that she was started on antibiotics yesterday for urinary tract infection. Patient is seen today in the emergency center waiting for a bed on the cardiac stepdown unit. EKG sinus rhythm Chest x-ray: No acute process WBC 5.6, hemoglobin 10.6, platelet count 182. INR 0.9. Sodium 132, potassium 4.6, BUN 20 creatinine 1.08. Blood sugar 153. Troponin negative 3. Liver function tests normal. Magnesium 1.8. Triglycerides 106, cholesterol 116, LDL 47, HDL 46. Home cardiac medications: Amlodipine 5 mg twice daily, aspirin 81 mg daily, Coreg 6.25 mg twice daily, Plavix 75 mg daily, Nitrostat as needed, Crestor 10 mg daily, valsartan 160 mg twice daily. PCI 04/01/2023 of the proximal LAD Echocardiogram 12/2022 revealed field normal EF, mild TR MPI 03/08/2023 revealed EF 50%, anterior apical ischemia Review Of Systems: At the time of my evaluation: Constitutional: No fever, no chills. No weakness, fatigue or lethargy. EENT: No headache. No dizziness. Lungs: No shortness of breath, cough, no sputum production. No wheezing. Cardiovascular: No chest pain, no lower extremity edema. No palpitations. No paroxysmal nocturnal dyspnea. No orthopnea. No lightheadedness or dizziness. No syncopal episodes. Abdominal: No abdominal pain. No nausea, vomiting. No diarrhea. No constipation. No bloody or tarry stools. Genitourinary: No dysuria.. No urinary retention. Musculoskeletal: No myalgias. No muscle weakness, no frequent falls. No back pain. No neck pain. Integumentary: No wounds. No rash. No unusual bruising. Neurologic: No aphasia. No facial droop. No change in mentation. No head injury. No headache. Physical examination: Gen: This is a 73-year-old female. She is resting on the ER stretch and appears to be comfortable and in no acute distress. VS: reviewed HEENT: Head is atraumatic, normocephalic. Pupils equal, round. Sclerae is anicteric. NECK: Supple. No JVD. . LUNGS: Clear to auscultation. No wheezes or rhonchi. No intercostal retractions. HEART: Regular rate and rhythm. 2/6 systolic murmur at the base. ABDOMEN: Soft No tenderness. EXTREMITIES: No pedal edema. No calf tenderness. NEUROLOGICAL: Patient is awake, alert and oriented x3. Assessment: Chest pain, acute coronary syndrome ruled out Coronary artery disease with previous stenting of the LAD 7/ Diabetes mellitus type 2 Hyperlipidemia Hypertension Plan: Patient is cleared from cardiology for discharge and may follow up with Dr. Chan as planned with outpatient stress testing. Continue current cardiac medications. Thank you kindly for this consultation. Nurse practitioner note has been reviewed, I agree with documented findings and plan of care. Patient was seen and examined. Past Medical History Past Medical History: Cancer, Diabetes Mellitus, Hyperlipidemia, Hypertension Additional Past Medical History / Comment(s): Type 2 diabetes. Hiatal hernia. 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 She did have endometriosis. She says post TIAN and later BSO. Heart Cath April 01- 2022 History of Any Multi-Drug Resistant Organisms: None Reported Past Surgical History: Back Surgery, Cholecystectomy, Ear Surgery, Hysterectomy, Orthopedic Surgery, Tonsillectomy Additional Past Surgical History / Comment(s): BSO. Colonoscopy 2018(next after 10yr). cataract surgery bilat eyes. Macular eye surgery bilat, Squamous cell removal from the right arm. Past Anesthesia/Blood Transfusion Reactions: Postoperative Nausea & Vomiting (PONV) Past Psychological History: No Psychological Hx Reported Smoking Status: Never smoker Past Alcohol Use History: None Reported Past Drug Use History: None Reported - Past Family History Father Family Medical History: Myocardial Infarction ([place]) Mother Family Medical History: Coronary Artery Disease (CAD), Hypertension Additional Family Medical History / Comment(s): Maternal aunt had breast cancer. Medications and Allergies Home Medications Medication Instructions Recorded Confirmed Type Aspirin [Adult Low Dose Aspirin EC] 81 mg PO W/SUPPER 10/07/18 04/15/23 History Omeprazole [PriLOSEC] 20 mg PO DAILY 10/07/18 04/15/23 History metFORMIN HCL [Glucophage] 500 mg PO BID-W/MEALS 05/02/21 04/15/23 History ALPRAZolam [Xanax] 0.125 mg PO HS 05/29/22 04/15/23 History Multivitamin [Multivitamins Adult 1 tab PO DAILY 03/26/23 04/15/23 History Gummies] amLODIPine [Norvasc] 5 mg PO BID-W/MEALS 03/26/23 04/15/23 History carvediloL [Coreg] 6.25 mg PO BID@1330,2230 03/26/23 04/15/23 History Clopidogrel [Plavix] 75 mg PO DAILY #90 tablet 04/01/23 04/15/23 Rx Cefuroxime [Ceftin] 250 mg PO BID 04/15/23 04/15/23 History Nitroglycerin Sl Tabs [Nitrostat] 0.4 mg SUBLINGUAL Q5M PRN 04/15/23 04/15/23 History Rosuvastatin [Crestor] 10 mg PO DAILY@199904/15/23 04/15/23 History Valsartan [Diovan] 160 mg PO BID-W/MEALS 04/15/23 04/15/23 History Vitamin C/Biotin [Hair, Skin and 1 tab PO DAILY 04/15/23 04/15/23 History Nails Chew] Allergies Allergy/AdvReac Type Severity Reaction Status Date / Time Sulfa (Sulfonamide Allergy Rash/Hives Verified 04/15/23 20:44 Antibiotics) clonidine [From Catapres] AdvReac SHAKES Verified 04/15/23 20:44 enalaprilat [From Vasotec] AdvReac Cough Verified 04/15/23 20:44 tetanus toxoid, adsorbed AdvReac Rash/Hives Verified 04/15/23 20:44 Physical Exam Vitals: Vital Signs Temp Pulse Resp BP Pulse Ox 04/16/23 07:27 72 18 154/65 04/16/23 00:50 65 16 118/59 98 04/15/23 22:09 81 18 134/65 96 04/15/23 20:51 102 H 18 145/65 96 04/15/23 19:01 78 18 168/72 04/15/23 18:39 97.4 F L 76 20 184/70 97 Intake and Output 04/15/23 04/16/23 04/16/23 22:59 06:59 14:59 Other: Weight 56.699 kg Results 04/15/23 19:29 04/15/23 19:29 Cardiac Enzymes 04/15/23 04/15/23 04/15/23 Range/Units 19:29 19:29 22:06 AST 22 (14-36) U/L Troponin I <0.012 <0.012 (0.000-0.034) ng/mL 04/16/23 Range/Units 01:20 AST (14-36) U/L Troponin I <0.012 (0.000-0.034) ng/mL Coagulation 04/15/23 Range/Units 19:29 PT 9.7 (9.0-12.0) sec APTT 23.4 (22.0-30.0) sec CBC 04/15/23 Range/Units 19:29 WBC 5.6 (3.8-10.6) k/uL RBC 3.61 L (3.80-5.40) m/uL Hgb 10.6 L (11.4-16.0) gm/dL Hct 30.5 L (34.0-46.0) % Plt Count 182 (150-450) k/uL Comprehensive Metabolic Panel 04/15/23 Range/Units 19:29 Sodium 132 L (137-145) mmol/L Potassium 4.6 (3.5-5.1) mmol/L Chloride 101 (98-107) mmol/L Carbon Dioxide 23 (22-30) mmol/L BUN 20 H (7-17) mg/dL Creatinine 1.08 H (0.52-1.04) mg/dL Glucose 153 H (74-99) mg/dL Calcium 9.3 (8.4-10.2) mg/dL AST 22 (14-36) U/L ALT 17 (4-34) U/L Alkaline Phosphatase 63 (38-126) U/L Total Protein 7.0 (6.3-8.2) g/dL Albumin 4.4 (3.5-5.0) g/dL Current Medications Generic Name Dose Route Start Last Admin Trade Name Freq PRN Reason Stop Dose Admin Amlodipine Besylate 5 mg 04/16/23 08:30 Amlodipine 5 Mg Tab PO BID-W/MEALS [facility] Aspirin 81 mg 04/16/23 09:00 Aspirin 325 Mg Tab PO DAILY [facility] Atorvastatin Calcium 20 mg 04/15/23 22:00 04/15/23 22:07 Atorvastatin 20 Mg Tab PO 20 mg HS [facility] Administration Carvedilol 6.25 mg 04/16/23 13:30 Carvedilol 6.25 Mg Tab PO BID@1330,2230 [facility] Clopidogrel Bisulfate 75 mg 04/16/23 09:00 Clopidogrel 75 Mg Tab PO DAILY [facility] Nitroglycerin 0.4 mg 04/15/23 20:44 Nitroglycerin Sl Tabs 0.4 Mg Tab SUBLINGUAL Q5M PRN Chest Pain Nitroglycerin 1 inch 04/16/23 00:00 04/16/23 06:35 Nitroglycerin Oint 1 Inch/Gm Packet TOPICAL Not Given Q6HR [facility] Non-Formulary Medication 10 mg 04/16/23 20:00 Rosuvastatin PO DAILY@2000 [facility] Non-Formulary Medication 160 mg 04/16/23 08:45 Valsartan [Diovan] PO BID-W/MEALS [facility] Intake and Output 04/15/23 04/16/23 04/16/23 22:59 06:59 14:59 Other: Weight 56.699 kg 04/15/23 19:29 04/15/23 19:29
[2023-04-16] MEDS ORDERED: ATORVASTATIN 20 MG TAB PO SCH (20:00)
[2023-04-16] MEDS ORDERED: ALPRAZolam 0.25 MG TAB PO SCH (21:00)
[2023-04-17] MEDS ORDERED: NON FORMULARY DRUG (Vitamin C/Biotin [Hair, Skin And Nails Chew] 1 EACH Tab.Chew) PO SCH (09:00)
[2023-04-17] MEDS ORDERED: PANTOPRAZOLE 40 MG TABLET PO SCH (10:00)
--- NOTE | 2023-04-19 10:36 | P.DS ---
Providers Date of admission: 04/15/23 20:44 Expected date of discharge: 04/26/23 Attending physician: Saji Bernabe Consults: 04/15/23 20:44 Consult Physician Urgent Consulting Provider: [facility] Consult Reason/Comments: Chest pain Do you want consulting provider notified?: Yes Primary care physician: O'Connor Hospital Course: Discharge diagnoses; Chest pain, acute coronary syndrome ruled out Coronary artery disease with previous stenting of the LAD 7/3 Diabetes mellitus type 2 Hyperlipidemia Hypertension Hospital course; patient is 73-year-old lady with past medical history significant for coronary artery disease, hypertension, diabetes mellitus, presented to the ER because of chest pain. Patient stated that she had a stent placed a couple of weeks ago. Patient woke up to go to shopping this morning when he started having chest pain that was pressure-like, intermittent, radiating to her left shoulder. No aggravating or relieving factors associated with this chest pain. Patient kept having these episodes of chest pain which is intermittent lasting between 10-15 minutes every time throughout the day. Denied any palpitations. Denied any shortness of breath. Was complaining of some episodes of nausea. Denies abdominal pain. Denied any fever or chills. Because of this chest pain, patient came to ER Initial lab work done in the ER showed abusive 5.6, hemoglobin 10.6, platelet count 182, sodium 132, potassium 4.6, BUN 20, creatinine 1.08, glucose 153, troponin 0.012, EKG done in the ER heart rate 76, QRS 85, no segment elevation, no T-wave inversion. Chest x-ray done in the ER showed no acute cardiac process patient admitted to medicine service Cardiology evaluated the patient, troponin continued to be flat, cardiology an[place]ieta ared the patient for discharge PHYSICAL EXAMINATION: GENERAL: The patient is alert and oriented x3, not in any acute distress. Well developed, well nourished. HEENT: Pupils are round and equally reacting to light. EOMI. No scleral icterus. No conjunctival pallor. Normocephalic, atraumatic. No pharyngeal erythema. No thyromegaly. CARDIOVASCULAR: S1 and S2 present. No murmurs, rubs, or gallops. PULMONARY: Chest is clear to auscultation, no wheezing or crackles. ABDOMEN: Soft, nontender, nondistended, normoactive bowel sounds. No palpable organomegaly. MUSCULOSKELETAL: No joint swelling or deformity. EXTREMITIES: No cyanosis, clubbing, or pedal edema. NEUROLOGICAL: Gross neurological examination did not reveal any focal deficits. SKIN: No rashes. Dictation was produced using [employer] dictation software. please excuse any grammatical, word or spelling errors. Patient Condition at Discharge: Stable Plan - Discharge Summary New Discharge Prescriptions: Continue Omeprazole [PriLOSEC] 20 mg PO DAILY Aspirin [Adult Low Dose Aspirin EC] 81 mg PO W/SUPPER ALPRAZolam [Xanax] 0.125 mg PO HS carvediloL [Coreg] 6.25 mg PO BID@1330,2230 Nitroglycerin Sl Tabs [Nitrostat] 0.4 mg SUBLINGUAL Q5M PRN PRN Reason: Chest Pain metFORMIN HCL [Glucophage] 500 mg PO BID-W/MEALS Multivitamin [Multivitamins Adult Gummies] 1 tab PO DAILY amLODIPine [Norvasc] 5 mg PO BID-W/MEALS Clopidogrel [Plavix] 75 mg PO DAILY #90 tablet Rosuvastatin [Crestor] 10 mg PO DAILY@2000 Valsartan [Diovan] 160 mg PO BID-W/MEALS Vitamin C/Biotin [Hair, Skin and Nails Chew] 1 tab PO DAILY Cefuroxime [Ceftin] 250 mg PO BID Discharge Medication List Aspirin [Adult Low Dose Aspirin EC] 81 mg PO W/SUPPER 10/07/18 [History] Omeprazole [PriLOSEC] 20 mg PO DAILY 10/07/18 [History] metFORMIN HCL [Glucophage] 500 mg PO BID-W/MEALS 05/02/21 [History] ALPRAZolam [Xanax] 0.125 mg PO HS 05/29/22 [History] Multivitamin [Multivitamins Adult Gummies] 1 tab PO DAILY 03/26/23 [History] amLODIPine [Norvasc] 5 mg PO BID-W/MEALS 03/26/23 [History] carvediloL [Coreg] 6.25 mg PO BID@1330,2230 03/26/23 [History] Clopidogrel [Plavix] 75 mg PO DAILY #90 tablet 04/01/23 [Rx] Cefuroxime [Ceftin] 250 mg PO BID 04/15/23 [History] Nitroglycerin Sl Tabs [Nitrostat] 0.4 mg SUBLINGUAL Q5M PRN 04/15/23 [History] Rosuvastatin [Crestor] 10 mg PO DAILY@199904/15/23 [History] Valsartan [Diovan] 160 mg PO BID-W/MEALS 04/15/23 [History] Vitamin C/Biotin [Hair, Skin and Nails Chew] 1 tab PO DAILY 04/15/23 [History] Follow up Appointment(s)/Referral(s): Chavez Chan MD [STAFF PHYSICIAN] - 2 Weeks (completed scheduled stress test) George Cordova MD [Primary Care Provider] - 1-2 days Discharge Disposition: HOME SELF-CARE
== END 2023-04-16 12:13 | disposition home or self-care (01) ==
LOC: EC 18:29 → 3SCARD 20:44 → INTOOBSV 20:44 → 3SCARD 21:01
PROVIDERS: ADMIT Hospitalist; ATTEND Hospitalist
DX: R07.9 Chest pain, unspecified (principal); E11.9 Type 2 diabetes mellitus without complications; E78.5 Hyperlipidemia, unspecified; I10 Essential (primary) hypertension; I25.10 Atherosclerotic heart disease of native coronary artery without angina pectoris; Z85.828 Personal history of other malignant neoplasm of skin; Z95.5 Presence of coronary angioplasty implant and graft; Z79.82 Long term (current) use of aspirin; Z79.84 Long term (current) use of oral hypoglycemic drugs; Z79.899 Other long term (current) drug therapy; Z79.02 Long term (current) use of antithrombotics/antiplatelets; Z88.2 Allergy status to sulfonamides; Z82.49 Family history of ischemic heart disease and other diseases of the circulatory system
CPT/HCPCS: 99285; 36415; 93005; 80061; 80053; 83735; 84484 ×2; 85025; 85610; 85730; 71046; G0378 ×2

== ENCOUNTER → 2023-06-18 | Outpatient (CLI) | payer MEDICARE ==
[2023-06-18 15:51] LABS: HCT 32.2 % (37.2-46.3); HGB 10.6 d/dL (12.0-15.0); MCH 28.6 pg (27.0-32.0); MCHC 32.9 d/dL (32.0-37.0); MCV 86.8 FL (80.0-97.0); Mean Platelet Volume 11.6 FL (9.5-12.2); NRBC Per 100 WBC 0 X 10*3/uL (0.00-0.01); Platelet Count 201 X 10*3/uL (140-440); RBC 3.71 X 10*6/uL (4.10-5.20); RDW 12.7 % (11.5-14.5)
[2023-06-18 15:52] LABS: Basophils # (A) 0.03 X 10*3/uL (0.00-0.10); Basophils % (A) 0.7 %; Eosinophils # (A) 0.12 X 10*3/uL (0.04-0.35); Eosinophils % (A) 2.7 %; Lymphocytes # (A) 1.12 X 10*3/uL (0.90-5.00); Lymphocytes % (A) 24.9 %; Monocytes # (A) 0.36 X 10*3/uL (0.20-1.00); Neutrophils # (A) 2.85 X 10*3/uL (1.80-7.70); Neutrophils % (A) 63.3 %
[2023-06-18 16:22] LABS: ALT 23 U/L (8-44); AST 24 U/L (13-35); Albumin 4.6 d/dL (3.8-4.9); Alkaline Phosphatase 63 U/L (41-126); BUN/Creat Ratio 12.27 Ratio (12.00-20.00); Blood Urea Nitrogen 13.5 mg/dL (9.0-27.0); Carbon Dioxide 26.1 mmol/L (21.6-31.8); Chloride 104 mmol/L (96-109); Creatine Kinase 30 U/L (26-186); Globulin 2.3 d/dL (1.6-3.3); Glucose 151 mg/dL (70-110); LDL Cholesterol,Calculated 55.3 mg/dL (0.0-131.0); Potassium 4.3 mmol/L (3.5-5.5); Sodium 143 mmol/L (135-145); Total Bilirubin 0.2 mg/dL (0.3-1.2); Total Protein 6.9 d/dL (6.2-8.2)
== END | disposition home or self-care (01) ==
LOC: LABWHC1 09:23
PROVIDERS: ATTEND Internal Medicine Interventional Cardiology
DX: E11.65 Type 2 diabetes mellitus with hyperglycemia (principal); I50.1 Left ventricular failure, unspecified; E78.2 Mixed hyperlipidemia; I25.83 Coronary atherosclerosis due to lipid rich plaque
CPT/HCPCS: 36415; 80053; 80061; 82550; 83036; 84443; 85025

== ENCOUNTER → 2023-07-02 | Outpatient (CLI) | payer MEDICARE ==
[2023-07-02 14:29] VITALS: BP 152/67; PULSE 54; RESP 17; TEMP 97.9
--- NOTE | 2023-07-02 17:29 | P.HPOB ---
History of Present Illness H&P Date: 07/02/23 Chief Complaint: The patient is here for her routine gynecologic exam and ma mmogram. This is a 73-year-old with an LMP of 1975. She is status post TIAN and later BSO for benign reasons. She is without gynecologic complaints. She states she stopped using the estrogen vaginal cream because it felt like it was irritating the vagina little bit. She is no longer sexually active. She has been seeing a urologist for recurrent UTIs who suggested using the estrogen crea m again for this reason. Review of Systems The patient's weight has been stable over the last year. She denies respiratory, cardiac, or G.I. problems. Past Medical History Past Medical History: Coronary Artery Disease (CAD), Cancer, Diabetes Mellitus, Hyperlipidemia, Hypertension Additional Past Medical History / Comment(s): Type 2 diabetes. Hiatal hernia. 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 Coronary artery stent 2022. Trigeminal neuralgia. Kidney stones. 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 She did have endometriosis. History of Any Multi-Drug Resistant Organisms: None Reported Past Surgical History: Back Surgery, Cholecystectomy, Ear Surgery, Hysterectomy, Orthopedic Surgery, Tonsillectomy Additional Past Surgical History / Comment(s): TIAN and later BSO. Colonoscopy 2018(next after 10yr). Coronary artery stent placed 2022. cataract surgery bilat eyes. Macular eye surgery bilat, Squamous cell removal from the right arm. Past Anesthesia/Blood Transfusion Reactions: Postoperative Nausea & Vomiting (PONV) Past Psychological History: No Psychological Hx Reported (PHQ-2 questionaire was given and she scores 0. This is a negative screen for depression.) Smoking Status: Never smoker Past Alcohol Use History: None Reported Past Drug Use History: None Reported Additional History: She has been since 1969 and is no longer sexually active. She is retired. - Past Family History Father Family Medical History: Myocardial Infarction ([place]) Mother Family Medical History: Coronary Artery Disease (CAD), Hypertension Additional Family Medical History / Comment(s): Maternal aunt had breast cancer. Medications and Allergies Home Medications Medication Instructions Recorded Confirmed Type Aspirin [Adult Low Dose Aspirin EC] 81 mg PO W/SUPPER 10/07/18 07/02/23 History Omeprazole [PriLOSEC] 20 mg PO DAILY 10/07/18 07/02/23 History metFORMIN HCL [Glucophage] 500 mg PO BID-W/MEALS 05/02/21 07/02/23 History ALPRAZolam [Xanax] 0.125 mg PO HS 05/29/22 07/02/23 History Multivitamin [Multivitamins Adult 1 tab PO DAILY 03/26/23 07/02/23 History Gummies] amLODIPine [Norvasc] 5 mg PO BID-W/MEALS 03/26/23 07/02/23 History carvediloL [Coreg] 6.25 mg PO BID@1330,2230 03/26/23 07/02/23 History Clopidogrel [Plavix] 75 mg PO DAILY #90 tablet 04/01/23 07/02/23 Rx Nitroglycerin Sl Tabs [Nitrostat] 0.4 mg SUBLINGUAL Q5M PRN 04/15/23 07/02/23 History Rosuvastatin [Crestor] 10 mg PO DAILY@199904/15/23 07/02/23 History Valsartan [Diovan] 160 mg PO BID-W/MEALS 04/15/23 07/02/23 History Vitamin C/Biotin [Hair, Skin and 1 tab PO DAILY 04/15/23 07/02/23 History Nails Chew] Gabapentin [Neurontin] 200 mg PO TID 07/02/23 07/02/23 History Allergies Allergy/AdvReac Type Severity Reaction Status Date / Time Sulfa (Sulfonamide Allergy Rash/Hives Verified 07/02/23 14:23 Antibiotics) clonidine [From Catapres] AdvReac SHAKES Verified 07/02/23 14:23 enalaprilat [From Vasotec] AdvReac Cough Verified 07/02/23 14:23 tetanus toxoid, adsorbed AdvReac Rash/Hives Verified 07/02/23 14:23 Exam Vital Signs Temp Pulse Resp BP Pulse Ox 07/02/23 14:24 97.9 F 54 L 17 152/67 99 Intake and Output 07/02/23 07/02/23 07/02/23 06:59 14:59 22:59 Other: Weight 57.153 kg Height 5 feet 0 inches, weight 126 pounds, BMI 24.6. This is a well-developed well-nourished white female who is alert and oriented times 3 in no acute distress. HEENT: Within normal limits. NECK: Supple without mass or thyromegaly. CHEST AND LUNGS: Clear to auscultation. HEART: Regular rate and rhythm. BREASTS: Are without mass or discharge. AXILLARY EXAM: Negative for adenopathy. BACK: Negative for CVA tenderness. ABDOMEN: Soft, nontender, without palpable masses. PELVIC EXAM: External genitalia appears normal with mild to moderate atrophy. Vagina appears normal with mild to moderate atrophy. There is a stable grade 1 cystocele. Bimanual examination is negative for mass or tenderness. RECTAL EXAM: Rectovaginal exam is negative for mass or tenderness and is negative for occult blood. EXTREMITIES: Nontender. IMPRESSION: 1. 73-year-old menopausal female status post TIAN and later BSO for benign reasons, with stable grade 1 cystocele. 2. History of recurrent UTIs. PLAN: 1. Pap smears have been discontinued. 2. Self breast awareness was discussed with the patient. We have also discussed symptoms associated with inflammatory breast cancer. 3. Screening mammogram was done today. 4. Osteoporosis prevention was discussed. I have stressed the importance of adequate calcium, vitamin D and regular exercise. Recommended amounts of calcium and vitamin D were also discussed. She is declining bone density testing. She states she would not take medication even if she was diagnosed with abnormal bone density findings. She was instructed to call if she changes her mind about bone density testing. 5. She will try to use the estrogen vaginal cream around the urethra opening. She will apply small amount to that area every other day. She will see if this helps with her recurrent UTIs. She states she has a tube with the estrogen cream at home. She was instructed to call if she needs a refill on this prescription. 6. She was advised to return in one year for her annual well woman exam.
--- NOTE | 2023-07-03 08:53 | MM ---
Reason for Exam: Screening (asymptomatic). Last mammogram was performed 1 year(s) and 1 month(s) ago. Patient History: Menarche at age 12. First Full-Term at age 21. Left ovary removed at age 40. Right ovary removed at age 40. Hysterectomy at age 26. Postmenopausal. Other cancer at or over age 48. Estrogen for 4 months. Patient used Hormonal Contraceptives for 4 years. 05/22/2021, Benign Core Biopsy on the left side. 04/11/2001, Benign Stereotactic Core Biopsy on the right side. Maternal cousin had breast cancer, age 60. Maternal aunt had breast cancer, age 60. Risk Values: Jessie 5 year model risk: 2.2%. NCI Lifetime model risk: 4.7%. Prior Study Comparison: 09/27/2016 Bilateral Screening Mammogram, [facility]. 10/02/2017 Bilateral Screening Mammogram, [facility]. 10/07/2018 Bilateral Screening Mammogram, [facility]. 04/18/2020 Bilateral Screening Mammogram, [facility]. 05/02/2021 Bilateral Screening Mammogram, [facility]. 05/16/2021 Left Diagnostic Mammogram, [facility]. 11/23/2021 Left Diagnostic Mammogram, [facility]. 06/26/2022 Bilateral MG 3D diag mammo w/cad JEANE, [facility]. Tissue Density: The breast tissue is heterogeneously dense. This may lower the sensitivity of mammography. Findings: Analyzed By CAD. Bilateral breast biopsy clips. There is no suspicious group of microcalcifications or new suspicious mass. Benign-appearing calcifications bilaterally. Overall Assessment: Benign, BI-RAD 2 Management: Screening Mammogram of both breasts in [address] [facility] will attempt to contact patient to return for supplemental views and ultrasound if indicated. Patient should continue monthly self-breast exams. A clinical breast exam by your physician is recommended on an annual basis. This exam should not preclude additional follow-up of suspicious palpable abnormalities. Note on Jessie scores and lifetime risk: 1. A Jessie score greater than 3% is considered moderate risk. If this is the case, consider specialist referral to assess eligibility for a risk reducing agent. 2. If overall lifetime risk for the development of breast cancer is 20% or higher, the patient may qualify for future screening with alternating mammogram and breast MRI. Electronically signed and approved by: Denny Smith DO
== END | disposition home or self-care (01) ==
LOC: RADMAMWWP 13:25
PROVIDERS: ATTEND Obstetrics & Gynecology
DX: Z12.31 Encounter for screening mammogram for malignant neoplasm of breast (principal); Z78.0 Asymptomatic menopausal state; Z80.3 Family history of malignant neoplasm of breast
CPT/HCPCS: 77063; 77067

== ENCOUNTER → 2024-03-19 | Outpatient (CLI) | payer MEDICARE ==
[2024-03-19 10:45] LABS: Chloride 101 mmol/L (96-109); HCT 32.1 % (37.2-46.3); HGB 10.5 g/dL (12.0-15.0); MCH 28.5 pg (27.0-32.0); MCHC 32.7 g/dL (32.0-37.0); MCV 87.2 FL (80.0-97.0); Mean Platelet Volume 11.4 FL (9.5-12.2); NRBC Per 100 WBC 0 X 10*3/uL (0.00-0.01); Platelet Count 191 X 10*3/uL (140-440); Potassium 4.3 mmol/L (3.5-5.5); RBC 3.68 X 10*6/uL (4.10-5.20); Sodium 140 mmol/L (135-145); WBC 4.51 X 10*3/uL (4.50-10.00)
== END | disposition home or self-care (01) ==
LOC: LABWHC1 07:18
PROVIDERS: ATTEND Internal Medicine Interventional Cardiology
DX: Z01.812 Encounter for preprocedural laboratory examination (principal); I25.10 Atherosclerotic heart disease of native coronary artery without angina pectoris
CPT/HCPCS: 80051; 82565; 84520; 85027

== ENCOUNTER → 2024-03-30 | Day surgery (SDC) | payer MEDICARE ==
[~2024-03-30] MED LIST: ALPRAZolam 0.25 MG TAB PO PRN; CLOPIDOGREL 75 MG TAB PO SCH; HEPARIN SODIUM 1,000 UN/ML (10ML VL) ONE; LIDOCAINE 1% INJ 10MG/ML (20 ML MDV) ONE; NITROGLYCERIN SL TABS 0.4 MG TAB SUBLINGUAL PRN; NON FORMULARY DRUG (Aspirin [Adult Low Dose Aspirin Ec] 81 MG Tablet.Dr) PO SCH; NON FORMULARY DRUG (Omeprazole 20 MG Capsule.Dr) PO SCH; NON FORMULARY DRUG (Rosuvastatin 10 MG Tablet) PO SCH; RX INFO: IV CONTRAST WAS GIVEN 1 EACH MISC MISCELLANE PRN; SODIUM CHLORIDE 0.9% 1,000 ML IV SCH; VALSARTAN 320 MG PO SCH; VERAPAMIL 2.5 MG/ML 2 ML AMP ONE; amLODIPine 5 MG TAB PO SCH; carvediloL 6.25 MG TAB PO SCH; fentaNYL (PF) 50 MCG/ML 2 ML AMP ONE
[2024-03-30] MEDS: SODIUM CHLORIDE 0.9% 1,000 ML in EMPTY BAG 1 BAG IV ONE (07:30)
[2024-03-30 07:38] LABS: Glucose,Whole Blood 143 mg/dL (70-110)
[2024-03-30 07:42] VITALS: TEMP 97.9
[2024-03-30 07:50] LABS: Basophils # (A) 0.1 k/uL (0-0.2); Basophils % (A) 2 %; Eosinophils # (A) 0.2 k/uL (0-0.7); Eosinophils % (A) 4 %; HCT 32.5 % (34.0-46.0); HGB 10.9 gm/dL (11.4-16.0); Lymphocytes # (A) 1.2 k/uL (1.0-4.8); Lymphocytes % (A) 17 %; MCH 28.7 pg (25.0-35.0); MCHC 33.4 g/dL (31.0-37.0); Mean Platelet Volume 8.7; Monocytes # (A) 0.6 k/uL (0-1.0); Monocytes % (A) 8 %; Neutrophils # (A) 4.7 k/uL (1.3-7.7); Neutrophils % (A) 68 %; Platelet Count 213 k/uL (150-450); RBC 3.78 m/uL (3.80-5.40); RDW 13.4 % (11.5-15.5); WBC 6.9 k/uL (3.8-10.6)
[2024-03-30] MEDS: ALPRAZolam 0.5 MG TAB PO PRN (07:53)
[2024-03-30] MEDS: ASPIRIN 325 MG TAB PO STA (07:55)
[2024-03-30] MEDS: fentaNYL (PF) 50 MCG/1 ML VIAL IVP ONE (09:02)
[2024-03-30] MEDS: MIDAZOLAM 2 MG/2 ML VIAL IVP ONE (09:06)
[2024-03-30] MEDS: LIDOCAINE 1% INJ 10MG/ML (20 ML MDV) SQ ONE ×2 (09:06→09:07)
[2024-03-30] MEDS: HEPARIN SODIUM 1,000 UN/ML (10ML VL) IVP ONE (09:36)
[2024-03-30] MEDS: IOPAMIDOL-370 200ML BTL INJ ONE (09:43)
--- NOTE | 2024-03-30 09:59 | P.CARDCATH ---
Date of Procedure: 03/30/24 Description of Procedure: Cardiac Catheterization: The patient is a 74-year-old female with a known history of CAD, status post stenting of the LAD in March 2023, history of hypertension, hyperlipidemia and diabetes mellitus who has been complaining of dyspnea on exertion and had an abnormal MPI. Recommendations were made regarding cardiac catheterization, the risks and the complications were discussed with the patient who is in full understanding and agreement. Procedure Description: Patient was brought to laboratory technologist in fasting semi-sedated state after receiving Fentanyl and Benadryl achieiving moderate conscious sedated state. Using Xylocaine Anesthesia and modified Seldinger technique, a 6-Cambodian sheath was introduced in the left radial artery . Attempts to cannulate the right radial artery were unsuccessful. Subsequently, selective coronary angiography was performed using a 5-Cambodian 4 bend Henrietta catheter. Multiple views of the coronary artery including hemiaxial views were obtained. The 6 Cambodian pigtail catheter was used to cross the aortic valve and LVEDP was calculated. Following that, catheter and sheath were removed. Hemostasis was obtained with deployment of vascular band . There was no immediate complication. Patient was returned to room in stable condition. Of note, the patient received a total of 3000 units of intravenous heparin as well as intra-arterial verapamil. Findings: Fluoroscopy: Calcification of all the coronary arteries was noted Left main: This is a short size vessel, bifurcating into LAD and left circumflex, left main has no obstructive disease LAD: This is a large size vessel, reaching to the apex, tapers down in the distal third. The proximal LAD has a 30 to 40% plaque. The stented segment in the proximal and mid LAD is patent with no in-stent restenosis. There is a 70% to 80% plaque at the ostium of the diagonal branch which is a jailed branch with DENIS-3 flow. The rest of the vessel has no high-grade stenosis Left circumflex: This is a nondominant vessel, large in caliber giving rise to 2 obtuse marginal branch, the left circumflex and its branches have no obstructive disease RCA: This is a dominant large size vessel, bifurcating distally to PDA and PLV, the right coronary artery and its branches have no obstructive disease Left Ventriculogram: Not performed Hemodynamics: There was no gradient across the aortic valve, LVEDP was 6-8 mmHg Conclusion: 1. Calcified coronary arteries 2. Patent stent in the LAD 3. Mild disease in the proximal LAD proximal to the stent with no progression of disease 4. No obstructive disease in the RCA and left circumflex Recommendations: The patient will continue on present therapy with the aggressive coronary risks modifications. The findings and the recommendations were discussed with the patient and the family and they were in full understanding and agreement. Duration of sedation is 33 minutes.
[2024-03-30 15:10] VITALS: BP 126/60; PULSE 58; RESP 16
== END | disposition home or self-care (01) ==
LOC: CATHCVL 07:04
PROVIDERS: ATTEND Internal Medicine Interventional Cardiology
DX: I25.10 Atherosclerotic heart disease of native coronary artery without angina pectoris (principal); I10 Essential (primary) hypertension; E78.5 Hyperlipidemia, unspecified
CPT/HCPCS: 93458; 85025; C1769 ×2; C1894; J2250; J2001; J1644; J3010; Q9967

== ENCOUNTER → 2024-07-15 | Outpatient (CLI) | payer MEDICARE ==
[2024-07-15 11:32] VITALS: BP 136/70; PULSE 68; RESP 16; TEMP 97.9
--- NOTE | 2024-07-15 12:16 | P.HPOB ---
History of Present Illness H&P Date: 07/15/24 Chief Complaint: The patient is here for her routine gynecologic exam and ma mmogram. This is a 74-year-old G2, P2 with an LMP of 1975. She is status post TIAN/BSO for benign reasons. She is without gynecologic complaints. She has gotten occasional UTIs. She was started on prophylactic Keflex daily by Dr. Cordova and this has helped. She has not been using the estrogen vaginal cream. Review of Systems The patient has gained 4 pounds over the last year. She denies respiratory or cardiac problems. GI: Occasional gastric reflux symptoms Past Medical History Past Medical History: Coronary Artery Disease (CAD), Cancer, Diabetes Mellitus, Hyperlipidemia, Hypertension Additional Past Medical History / Comment(s): Type 2 diabetes. Hiatal hernia. 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 Coronary artery stent 2022. Trigeminal neuralgia. Kidney stones. 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 She did have endometriosis. History of Any Multi-Drug Resistant Organisms: None Reported Past Surgical History: Back Surgery, Cholecystectomy, Ear Surgery, Hysterectomy, Orthopedic Surgery, Tonsillectomy Additional Past Surgical History / Comment(s): TIAN and later BSO. Colonoscopy 2017(next after 10yr). Coronary artery stent placed 2022. cataract surgery bilat eyes. Macular eye surgery bilat, Squamous cell removal from the right arm. Past Anesthesia/Blood Transfusion Reactions: Postoperative Nausea & Vomiting (PONV) Additional Past Anesthesia/Blood Transfusion Reaction / Comment(s): low temp after back surgery. Date of Last Stent Placement:: 04/01/2023 Past Psychological History: No Psychological Hx Reported Smoking Status: Never smoker Past Alcohol Use History: None Reported Past Drug Use History: None Reported Additional History: She has been since 1970 and is very infrequently sexually active. She is retired. - Past Family History Father Family Medical History: Myocardial Infarction (AR) Mother Family Medical History: Coronary Artery Disease (CAD), Hypertension Additional Family Medical History / Comment(s): CABG. Maternal aunt had breast cancer. Medications and Allergies Home Medications Medication Instructions Recorded Confirmed Type Aspirin [Adult Low Dose Aspirin EC] 81 mg PO W/SUPPER 10/07/18 07/15/24 History Omeprazole [PriLOSEC] 40 mg PO DAILY 10/07/18 07/15/24 History metFORMIN HCL [Glucophage] 750 mg PO BID-W/MEALS 05/02/21 07/15/24 History ALPRAZolam [Xanax] 0.125 mg PO HS 05/29/22 07/15/24 History amLODIPine [Norvasc] 5 mg PO HS 03/26/23 07/15/24 History carvediloL [Coreg] 6.25 mg PO BID@1330,2230 03/26/23 07/15/24 History Nitroglycerin Sl Tabs [Nitrostat] 0.4 mg SUBLINGUAL Q5M PRN 04/15/23 07/15/24 History Rosuvastatin [Crestor] 10 mg PO DAILY@199904/15/23 07/15/24 History Valsartan [Diovan] 160 mg PO BID-W/MEALS 04/15/23 07/15/24 History Vitamin C/Biotin [Hair, Skin and 1 tab PO DAILY 04/15/23 07/15/24 History Nails Chew] Gabapentin [Neurontin] 100 mg PO BID 07/02/23 07/15/24 History hydroCHLOROthiazide 25 mg PO DAILY 03/26/24 07/15/24 History Allergies Allergy/AdvReac Type Severity Reaction Status Date / Time Sulfa (Sulfonamide Allergy Rash/Hives Verified 07/15/24 11:28 Antibiotics) clonidine [From Catapres] AdvReac SHAKES Verified 07/15/24 11:28 enalaprilat [From Vasotec] AdvReac Cough Verified 07/15/24 11:28 tetanus toxoid, adsorbed AdvReac Rash/Hives Verified 07/15/24 11:28 Exam Vital Signs Temp Pulse Resp BP Pulse Ox 07/15/24 11:30 97.9 F 68 16 136/70 99 Intake and Output 07/14/24 07/15/24 07/15/24 22:59 06:59 14:59 Other: Weight 58.967 kg Height 5 feet 0 inches, weight 130 pounds, BMI 25.4. This is a well-developed well-nourished white female who is alert and oriented times 3 in no acute distress. HEENT: Within normal limits. NECK: Supple without mass or thyromegaly. CHEST AND LUNGS: Clear to auscultation. HEART: Regular rate and rhythm. BREASTS: Are without mass or discharge. AXILLARY EXAM: Negative for adenopathy. BACK: Negative for CVA tenderness. ABDOMEN: Soft, nontender, without palpable masses. PELVIC EXAM: External genitalia appears normal with mild to moderate atrophy. Vagina appears normal with mild to moderate atrophy. There is no evidence of prolapse. Bimanual examination is negative for mass or tenderness. RECTAL EXAM: Rectovaginal exam is negative for mass or tenderness and is negative for occult blood. EXTREMITIES: Nontender. IMPRESSION: 1. 74-year-old menopausal female status post TIAN/BSO with normal gynecologic exam. 2. History of recurrent UTIs improved with prophylactic Keflex as prescribed by her PCP. PLAN: 1. Pap smears have been discontinued 2. Self breast awareness was discussed with the patient. We have also discussed symptoms associated with inflammatory breast cancer. 3. Screening mammogram will be done today. 4. Osteoporosis prevention was discussed. She is declining bone density testing and she is also states she would not take medication even if her bones were weak. She was instructed to call if she changes her mind about this 5. She is going to try to use the estradiol vaginal cream and apply a small amount around the urinary opening 2-3 times per week. She will see if this helps with her recurrent UTIs. She states she has this at home and is declining a new prescription. She will call if she does need refills on this. 6. The patient was advised to return in 1-2 years for her well woman examination.
--- NOTE | 2024-07-15 12:24 | MM ---
Reason for Exam: Screening (asymptomatic). Last screening mammogram was performed 12 month(s) ago. Patient History: Menarche at age 12. First Full-Term at age 21. Left ovary removed at age 40. Right ovary removed at age 40. Hysterectomy at age 26. Postmenopausal. Other cancer at or over age 48. Estrogen for 4 months. Patient used Hormonal Contraceptives for 4 years. 05/22/2021, Benign Core Biopsy on the left side. 04/11/2001, Benign Stereotactic Core Biopsy on the right side. Maternal cousin had breast cancer, age 60. Maternal aunt had breast cancer, age 60. Risk Values: Jessie 5 year model risk: 2.2%. NCI Lifetime model risk: 4.4%. Prior Study Comparison: 11/23/2021 Left Diagnostic Mammogram, [facility]. 06/26/2022 Bilateral MG 3D diag mammo w/cad JEANE, [facility]. 07/02/2023 Bilateral MG 3D screening mammo w/cad, [facility]. Tissue Density: The breasts are almost entirely fatty. Findings: Analyzed By CAD. Right breast biopsy clip. Right breast: There is no suspicious group of microcalcifications or new suspicious mass. Benign-appearing calcifications right breast. Left breast: There is no suspicious group of microcalcifications or new suspicious mass. Benign-appearing calcifications left breast. Overall Assessment: Benign, BI-RAD 2 Management: Screening Mammogram of both breasts in [address] [facility] will attempt to contact patient to return for supplemental views and ultrasound if indicated. Patient should continue monthly self-breast exams. A clinical breast exam by your physician is recommended on an annual basis. This exam should not preclude additional follow-up of suspicious palpable abnormalities. Note on Jessie scores and lifetime risk: 1. A Jessie score greater than 3% is considered moderate risk. If this is the case, consider specialist referral to assess eligibility for a risk reducing agent. 2. If overall lifetime risk for the development of breast cancer is 20% or higher, the patient may qualify for future screening with alternating mammogram and breast MRI. [facility], , 07/15/2024 12:21 PM. Electronically signed and approved by: Denny Smith DO
== END ==
LOC: WWCWWP 11:09
PROVIDERS: ATTEND Obstetrics & Gynecology
CPT/HCPCS: 77063; 77067

== ENCOUNTER → 2025-03-24 | Outpatient (CLI) | payer MEDICARE ==
[2025-03-24 15:07] LABS: Basophils # (A) 0.05 X 10*3/uL (0.00-0.10); Basophils % (A) 0.8 %; Eosinophils # (A) 0.25 X 10*3/uL (0.04-0.35); HCT 31.3 % (37.2-46.3); Immature Grans, Automated 0 %; Lymphocytes # (A) 1.22 X 10*3/uL (0.90-5.00); Lymphocytes % (A) 19.6 %; MCHC 31.9 g/dL (32.0-37.0); MCV 87.7 FL (80.0-97.0); Mean Platelet Volume 11.5 FL (9.5-12.2); Monocytes # (A) 0.54 X 10*3/uL (0.20-1.00); Monocytes % (A) 8.7 %; NRBC Per 100 WBC 0 X 10*3/uL (0.00-0.01); Neutrophils # (A) 4.16 X 10*3/uL (1.80-7.70); Neutrophils % (A) 66.9 %; Platelet Count 211 X 10*3/uL (140-440); RBC 3.57 X 10*6/uL (4.10-5.20); RDW 13.8 % (11.5-14.5); WBC 6.22 X 10*3/uL (4.50-10.00)
[2025-03-24 16:42] LABS: ALT 13 U/L (8-44); AST 17 U/L (13-35); Albumin 4.3 g/dL (3.8-4.9); Albumin/Globulin Ratio 1.79 Ratio (1.60-3.17); Alkaline Phosphatase 62 U/L (41-126); BUN/Creat Ratio 21.36 Ratio (12.00-20.00); Blood Urea Nitrogen 29.9 mg/dL (9.0-27.0); Calcium 9.6 mg/dL (8.7-10.3); Carbon Dioxide 23.9 mmol/L (21.6-31.8); Chloride 100 mmol/L (96-109); Chol/HDL Ratio 2.47 Ratio; Globulin 2.4 g/dL (1.6-3.3); Glucose 140 mg/dL (70-110); LDL Cholesterol,Calculated 61.9 mg/dL (0.0-131.0); Potassium 4.6 mmol/L (3.5-5.5); Sodium 135 mmol/L (135-145); Total Bilirubin 0.3 mg/dL (0.3-1.2); Total Protein 6.7 g/dL (6.2-8.2)
== END | disposition home or self-care (01) ==
LOC: LABWHC1 07:33
PROVIDERS: ATTEND Internal Medicine Interventional Cardiology
DX: E78.2 Mixed hyperlipidemia (principal); E11.22 Type 2 diabetes mellitus with diabetic chronic kidney disease; I49.8 Other specified cardiac arrhythmias
CPT/HCPCS: 36415; 80053; 80061; 83036; 85025